=== PATIENT | female | born 1980 | race Caucasian/White ===

== ENCOUNTER → 2018-02-26 14:38 | Outpatient (CLI) | payer SELFPAY ==
[2018-02-26 15:18] LABS: Absolute Lymphocyte Count 1.48 X10^3/ul (0.83-4.51); Absolute Neutrophil Count 5.3 X10^3/uL (2.0-7.7); Basophil# 0.03 X10^3/uL; Basophil% 0.4 % (0-1); Eosinophil# 0.13 X10^3/uL; Eosinophils% 1.7 % (0-5); Hematocrit 38.4 % (37-47); Hemoglobin 12.8 g/dl (12.0-15.0); Lymphocyte # 1.48 X10^3/ul (4.0); Lymphocyte % 19.8 % (19-41); Mean Corp Hgb Conc 33.3 g/gl (32-36); Mean Corpuscular Hgb 30.5 pg (27.0-32.0); Mean Corpuscular Volume 91.6 fL (81-99); Mean Platelet Vol. 9.5 fl (6.2-12.0); Monocyte% 6.7 % (0-10); Neutrophil # 5.32 X10^3/uL (2.7-7.7); Neutrophil % 71.3 % (47-70); Platelet Count 252 K/mm3 (150-450); RBC Distribution Width CV 12.7 % (11.6-14.6); RBC Distribution Width SD 42.6 fl (35.1-43.9); Red Blood Count 4.19 M/mm3 (4.2-5.4); White Blood Count 7.5 K/mm3 (4.4-11.0)
[2018-02-26 15:32] LABS: POSITIVE COUNT NO; POSITIVE DIFFERENTIAL NO; POSITIVE MORPHOLOGY NO
[2018-02-26 15:58] LABS: ALB/GLOB Ratio 0.7 RATIO (0.9-2.4); AST(SGOT) 15 U/L (15-37); Alanine Aminotransfer ALT/SGPT 19 U/L (13-56); Albumin, Serum 3.2 g/dL (3.2-5.0); Alkaline Phosphatase 78 U/L (45-117); Anion Gap 9 (5-15); BUN 9 mg/dL (7-18); BUN/Creat Ratio 9.3 RATIO (10-20); Calcium,Total 10.7 mg/dL (8.5-10.1); Chloride 104 mmol/L (98-107); Creatinine, Serum 0.97 mg/dL (0.55-1.02); EST Glomerular Filtration Rate 68 mL/min (>60); Est Glom Filt Rate - Afr Amer 83 mL/min (>60); Globulin 4.3 g/dL (2.2-4.2); Glucose 110 mg/dL (74-106); Glucose Challenge Gest 1H 50g 110 mg/dL (70-140); Potassium 3.3 mmol/L (3.5-5.1); Protein, Total 7.5 g/dL (6.4-8.2); Sodium Level 136 mmol/L (136-145); T4 Free Direct 0.64 ng/dL (0.76-1.46); Thyroid Stim Hormone (TSH) 2.35 uIU/mL (0.358-3.74)
[2018-02-26 16:34] LABS: HIV - WCH Non-Reactive (Nonreactive); Rubella IgG 14.2 IU/mL
[2018-02-26 20:57] LABS: Chlamydia Trachomatis by PCR Negative (Negative); Neisserai gonorrhoeae by PCR Negative (Negative); Probe Check PASS; Sample Adequacy Control PASS; Specimen Processing Control PASS
[2018-02-28 03:42] LABS: Rapid Plasmin Reagin (RPR) NONREACTIVE (NONREACTIVE)
[2018-02-28 11:30] LABS: HEPATITIS B SURFACE AG Negative (Negative)
== END ==
PROVIDERS: Family Provider Family Medicine; PCP Family Medicine; Visit Provider Obstetrics & Gynecology
DX: O09.529 Supervision of elderly multigravida, unspecified trimester (principal); Z3A.00 Weeks of gestation of pregnancy not specified
CPT/HCPCS: 36415; 80053; 82950; 84439; 84443; 85025; 86592; 86703; 86762; 86850; 86900; 87086; 87088; 87340; 87491; 87591

== ENCOUNTER → 2018-03-27 11:35 | Outpatient (CLI) | payer SELFPAY ==
--- NOTE | 2018-03-27 11:43 | EKG12_ITS ---
Test Reason : ROUTINE Blood Pressure : / mmHG Vent. Rate : 079 BPM Atrial Rate : 079 BPM P-R Int : 134 ms QRS Dur : 076 ms QT Int : 326 ms P-R-T Axes : 034 -12 001 degrees QTc Int : 373 ms Normal sinus rhythm with sinus arrhythmia Moderate voltage criteria for LVH, may be normal variant Borderline ECG Confirmed by ULYSSES SHEFFIELD, SANAM ([id number]), supervising film or videotape editor MELLISSA ARELLANO ([id number]) on 03/31/2018 3:16:51 PM Referred By: Chani Alegre Confirmed By:SANAM ARORA MD
== END ==
PROVIDERS: Family Provider Family Medicine; PCP Family Medicine; Referring Provider Obstetrics & Gynecology; Visit Provider Obstetrics & Gynecology
DX: O10.919 Unspecified pre-existing hypertension complicating pregnancy, unspecified trimester (principal)
CPT/HCPCS: 93005

== ENCOUNTER → 2018-05-14 11:39 | Outpatient (CLI) | payer SELFPAY ==
[2018-04-11 14:26] VITALS: BMI 36.2
--- NOTE | 2018-05-14 11:41 | US_ITS ---
STUDY: SECOND AND THIRD TRIMESTER OBSTETRICAL ULTRASOUND REASON FOR EXAM: Female, 38 years old. anatomy LMP: 12/15/2017 TECHNIQUE: Transabdominal TECHNICAL QUALITY: Adequate. PRIOR ULTRASOUND: None. FINDINGS: There is a single intrauterine fetus. The fetus is in an transverse lie with the head on the maternal left side. There is demonstrated cardiac activity with a heart rate of 143 bpm. There is a normal amniotic fluid volume. The largest amniotic fluid pocket measures 2.5 x 3.5 cm.The placenta is anterior in location and is not low lying. There are Grade 0 placental changes. The cervix measures 4.0 in length. The bilateral adnexal regions are normal. BIOMETRY: BPD: 4.9 cm: 20 weeks, 6 days HC: 18.4 cm: 20 weeks, 6 days AC: 15.6 cm: 20 weeks, 6 days FL: 3.7 cm: 21 weeks, 5 days CI: 78% FL/BPD: 75% FL/AC: 23% HC/AC: 1.18 age by current US: 21 weeks, 1 days. TREMAINE by current US: 09/23/2018. Estimated weight: 400 grams, +/- 58 grams, 28 %. Age by LMP: 21 weeks, 3 days. TREMAINE by LMP: 09/21/2018. ANATOMY: Gender: Female Cranium: Normal lateral ventricles. Normal choroid plexus. Normal cerebellum. Normal cisterna magna. Normal face, nose and lips. Chest: Normal 4-chamber heart, but limited in visualization. Abdomen/Pelvis: Normal diaphragm. Normal stomach. Normal abdominal wall. Normal cord insertion. Normal 3 vessel cord. Normal kidneys. Normal bladder. Spine: Normal cervical spine. Normal thoracic spine. Normal lumbar spine. Normal sacrum. Extremities: Normal bilateral upper extremities. Normal bilateral lower extremities. Limited visualization of the face. US/OB Anatomy Scan IMPRESSION: Single live intrauterine correlating to gestational age of 21 weeks and 1 day. Limited visualization of the four-chamber heart and face. Electronically Signed: Bhanu Pelaez MD at 8:28 EST , Service support ,
== END ==
LOC: US 11:41
PROVIDERS: Family Provider Family Medicine; PCP Family Medicine; Referring Provider Obstetrics & Gynecology; Visit Provider Obstetrics & Gynecology
DX: Z36.89 Encounter for other specified antenatal screening (principal)
CPT/HCPCS: 76805

== ENCOUNTER → 2018-05-26 16:04 | Outpatient (CLI) | payer SELFPAY ==
[2018-05-14 13:05] VITALS: BMI 36.2
--- NOTE | 2018-05-26 16:06 | US_ITS ---
STUDY: SECOND AND THIRD TRIMESTER OBSTETRICAL ULTRASOUND - LIMITED REASON FOR EXAM: Female, 38 years old. Routine survey. LMP: 12/15/2017 PRIOR ULTRASOUND: 05/14/2018 TECHNIQUE: Transabdominal TECHNICAL QUALITY: Adequate. FINDINGS: There is a single intrauterine fetus. The fetus is in a transverse lie with the head on the maternal right side. There is demonstrated cardiac activity with a heart rate of 150 bpm. There is a normal amniotic fluid volume. The amniotic fluid index (NAVDEEP) is 13.4 cm. The placenta is anterior/fundal, not low-lying There are Grade 0 placental changes. The cervix measures 4.5 cm in length. BIOMETRY: BPD: 5.6 cm: 23 weeks, 2 days HC: 21.6 cm: 23 weeks, 4 days AC: 19.3 cm: 24 weeks, 1 days FL: 4.3 cm: 24 weeks, 1 days Age by LMP: 23 weeks, 1 days. TREMAINE by LMP: 09/21/2018. age by prior US: 22 weeks, 6 days. TREMAINE by prior US: 09/23/2018. age by current US: 23 weeks, 6 days. TREMAINE by current US: 09/16/2018. Estimated weight: 646 grams, +/- 94 grams, 81 percentile. Gender: Female 4 chambered heart and facial profile of the fetus visualized and are all sonographically normal US/OB Limited With Biometrics IMPRESSION: Single live intrauterine at 23 weeks 6 days by current ultrasound with TREMAINE of 09/16/2018. Heart rate at 150 bpm. No suspicious sonographic findings, normal growth noted since the previous study. Electronically Signed: Fredy Dickson MD at 18:07 EST , Service support ,
== END ==
PROVIDERS: Family Provider Family Medicine; PCP Family Medicine; Visit Provider Obstetrics & Gynecology
DX: O09.529 Supervision of elderly multigravida, unspecified trimester (principal); Z3A.00 Weeks of gestation of pregnancy not specified
CPT/HCPCS: 76816

== ENCOUNTER → 2018-07-04 12:05 | Outpatient (CLI) | payer SELFPAY ==
[2018-07-04 11:55] VITALS: BMI 36.2
[2018-07-04 13:08] LABS: Absolute Lymphocyte Count 1.47 X10^3/ul (0.83-4.51); Absolute Neutrophil Count 7.9 X10^3/uL (2.0-7.7); Basophil# 0.03 X10^3/uL; Basophil% 0.3 % (0-1); Eosinophil# 0.22 X10^3/uL; Eosinophils% 2.2 % (0-5); Hematocrit 32.1 % (37-47); Hemoglobin 10.6 g/dl (12.0-15.0); Lymphocyte # 1.47 X10^3/ul (4.0); Lymphocyte % 14.6 % (19-41); Mean Corpuscular Hgb 31.2 pg (27.0-32.0); Mean Corpuscular Volume 94.4 fL (81-99); Mean Platelet Vol. 9.3 fl (6.2-12.0); Monocyte# 0.46 X10^3/uL; Monocyte% 4.6 % (0-10); Neutrophil % 78.1 % (47-70); POSITIVE COUNT NO; POSITIVE DIFFERENTIAL NO; POSITIVE MORPHOLOGY NO; Platelet Count 259 K/mm3 (150-450); RBC Distribution Width CV 13.3 % (11.6-14.6); RBC Distribution Width SD 45.7 fl (35.1-43.9); White Blood Count 10.1 K/mm3 (4.4-11.0)
[2018-07-04 13:26] LABS: Glucose Challenge Gest 1H 50g 116 mg/dL (70-140)
== END ==
PROVIDERS: Family Provider Family Medicine; PCP Family Medicine; Referring Provider Obstetrics & Gynecology; Visit Provider Obstetrics & Gynecology
DX: O09.529 Supervision of elderly multigravida, unspecified trimester (principal); Z3A.00 Weeks of gestation of pregnancy not specified
CPT/HCPCS: 36415; 82950; 85025; 86850; 86900

== ENCOUNTER → 2018-07-18 11:27 | Outpatient (CLI) | payer SELFPAY ==
[2018-07-18 11:13] VITALS: BMI 36.2
[2018-07-18 12:44] LABS: Thyroid Stim Hormone (TSH) 3.03 uIU/mL (0.358-3.74)
== END ==
PROVIDERS: Family Provider Family Medicine; PCP Family Medicine; Referring Provider Obstetrics & Gynecology; Visit Provider Obstetrics & Gynecology
DX: O99.283 Endocrine, nutritional and metabolic diseases complicating pregnancy, third trimester (principal); E03.9 Hypothyroidism, unspecified; Z3A.00 Weeks of gestation of pregnancy not specified
CPT/HCPCS: 36415; 84443

== ENCOUNTER → 2018-08-08 11:56 | Outpatient (CLI) | payer SELFPAY ==
[2018-07-18 11:13] VITALS: BMI 36.2
[2018-08-08 11:24] VITALS: BMI 36.2
--- NOTE | 2018-08-08 11:58 | US_ITS ---
STUDY: SECOND AND THIRD TRIMESTER OBSTETRICAL ULTRASOUND - LIMITED REASON FOR EXAM: Female, 38 years old. Follow-up anatomy. LMP: December 15, 2017. PRIOR ULTRASOUND: Comparison is made with prior study dated May 26, 2018. TECHNIQUE: Transabdominal TECHNICAL QUALITY: Adequate. FINDINGS: There is a single intrauterine fetus. The fetus is in a cephalic presentation. There is demonstrated cardiac activity with a heart rate of 138 bpm. There is a normal amniotic fluid volume. The largest amniotic fluid pocket measures 3.4 cm x 0.9 cm. The amniotic fluid index (NAVDEEP) is 10.3 cm. The placenta is fundal and anterior in location. There are Grade 1 placental changes. The cervix measures 4.4 cm in length. BIOMETRY: BPD: 8.11 cm: 32 weeks, 5 days HC: 30.18 cm: 33 weeks, 4 days AC: 30.61 cm: 34 weeks, 4 days FL: 6.63 cm: 34 weeks, 1 days Age by LMP: 33 weeks, 5 days. TREMAINE by LMP: September 21, 2018. age by prior US: 34 weeks, 3 days. TREMAINE by prior US: September 16, 2018. age by current US: 33 weeks, 6 days. TREMAINE by current US: September 20, 2018. Estimated weight: 2357 grams, +/- 344 grams, 56 percentile. Gender: Female US/OB Limited With Biometrics IMPRESSION: Single live intrauterine gestation with mean gestational age of 34 weeks and 3 days. The measurements obtained today following the normal expected range. Electronically Signed: Marko Seymour MD at 10:06 EST , Service support ,
== END ==
PROVIDERS: Family Provider Family Medicine; PCP Family Medicine; Referring Provider Obstetrics & Gynecology; Visit Provider Obstetrics & Gynecology
DX: O99.283 Endocrine, nutritional and metabolic diseases complicating pregnancy, third trimester (principal); E03.9 Hypothyroidism, unspecified; Z3A.00 Weeks of gestation of pregnancy not specified
CPT/HCPCS: 76816

== ENCOUNTER 2018-08-14 17:04 | Outpatient (CLI) | payer SELFPAY ==
[2018-08-14 16:53] VITALS: BMI 36.2
--- NOTE | 2018-08-14 23:06 | OB.TRI.PN_ITS ---
Progress Notes Date of Service: 08/14/18 Progress Note: Patient presented for routine nonstress test scheduled secondary to chronic hypertension heart tones 130s-140s moderate variability reactive after prolonged monitoring no decelerations category 1 tracing [place]: Q. 5-10 minutes mild Assessment and plan 38-year-old with chronic hypertension continue weekly nonstress tests overall reassuring
== END 2018-08-14 18:30 | disposition home or self-care (01) ==
LOC: WPOUT 17:05 → OBT 17:06
PROVIDERS: Family Provider Family Medicine; PCP Family Medicine; Referring Provider Obstetrics & Gynecology; Visit Provider Obstetrics & Gynecology
DX: O16.9 Unspecified maternal hypertension, unspecified trimester (principal); Z3A.00 Weeks of gestation of pregnancy not specified
CPT/HCPCS: 59025

== ENCOUNTER → 2018-08-29 16:44 | Outpatient (CLI) | payer SELFPAY ==
[2018-08-29 13:46] VITALS: BMI 36.2
== END ==
PROVIDERS: Family Provider Family Medicine; PCP Family Medicine; Referring Provider Obstetrics & Gynecology; Visit Provider Obstetrics & Gynecology
DX: Z34.90 Encounter for supervision of normal pregnancy, unspecified, unspecified trimester (principal)
CPT/HCPCS: 87081

== ENCOUNTER 2018-09-08 09:36 | Inpatient (IN) | payer SELFPAY ==
[2018-07-04 11:55] VITALS: BMI 36.2
[2018-09-03 17:04] VITALS: BMI 36.2
[2018-09-08] VITALS (20 sets, daily range): BP systolic 120–148; BP diastolic 60–87; PULSE 67–93; RESP 12–18; TEMP 36–37.1; O2SAT 97–100; BMI 39.4
[2018-09-08] MEDS: Lactated Ringers 1,000 ML 999 ML IV (10:20)
[2018-09-08 10:30] LABS: Absolute Lymphocyte Count 1.57 X10^3/ul (0.83-4.51); Absolute Neutrophil Count 6.7 X10^3/uL (2.0-7.7); Basophil# 0.02 X10^3/uL; Basophil% 0.2 % (0-1); Eosinophil# 0.09 X10^3/uL; Hematocrit 33.2 % (37-47); Lymphocyte # 1.57 X10^3/ul (4.0); Lymphocyte % 17.3 % (19-41); Mean Corp Hgb Conc 33.1 g/gl (32-36); Mean Corpuscular Hgb 32.2 pg (27.0-32.0); Mean Corpuscular Volume 97.1 fL (81-99); Monocyte# 0.68 X10^3/uL; Monocyte% 7.5 % (0-10); Neutrophil # 6.68 X10^3/uL (2.7-7.7); Neutrophil % 73.9 % (47-70); POSITIVE COUNT NO; POSITIVE DIFFERENTIAL NO; POSITIVE MORPHOLOGY NO; Platelet Count 266 K/mm3 (150-450); RBC Distribution Width CV 13.7 % (11.6-14.6); RBC Distribution Width SD 46.5 fl (35.1-43.9); Red Blood Count 3.42 M/mm3 (4.2-5.4); White Blood Count 9.1 K/mm3 (4.4-11.0)
[2018-09-08] MEDS: Lactated Ringers 1,000 ML 150 ML IV (11:45)
[2018-09-08] MEDS: Sodium Citrate/Citric Acid 30 ML UDC PO (12:13)
[2018-09-08] MEDS: Cefazolin 2 GM in 0.9% Normal Saline 100 ML IV (12:27)
[2018-09-08] MEDS: Oxytocin 30 units/NS 500 ml 30 UNITS/500 ML IV.SOLN 167 UNITS IV (12:54)
[2018-09-08] MEDS: Lactated Ringers 1,000 ML 100 ML IV (17:49)
[2018-09-08] MEDS: Ketorolac 30 MG/ML Syringe IV ×2 (17:53→23:04)
[2018-09-08] MEDS: 0.9% Saline Lock 10 ML Syringe IV (23:04)
[2018-09-09] VITALS (17 sets, daily range): BP systolic 121–143; BP diastolic 70–81; PULSE 64–99; RESP 18; TEMP 36.4–37.2; O2SAT 95–100
[2018-09-09] MEDS: Lactated Ringers 1,000 ML 100 ML IV (02:40)
[2018-09-09] MEDS: Ketorolac 30 MG/ML Syringe IV ×3 (05:01→18:41)
[2018-09-09 05:04] LABS: Hematocrit 27.3 % (37-47); Hemoglobin 8.9 g/dl (12.0-15.0); Mean Corp Hgb Conc 32.6 g/gl (32-36); Mean Corpuscular Hgb 32.6 pg (27.0-32.0); Platelet Count 210 K/mm3 (150-450); RBC Distribution Width CV 13.9 % (11.6-14.6); RBC Distribution Width SD 47.8 fl (35.1-43.9); Red Blood Count 2.73 M/mm3 (4.2-5.4); White Blood Count 7.7 K/mm3 (4.4-11.0)
[2018-09-09 05:10] LABS: Scan Indicated on CBC? Y/N NO
--- NOTE | 2018-09-09 05:25 | HP.PCM_ITS ---
- Problem List (1) Rh negative status during Status: Acute Qualifiers: Comment: rhogam at 28 weeks and PRN (2) History of hemorrhage Status: Acute Comment: delayed PPH 2 units transfused (3) Hypothyroidism affecting Status: Acute Qualifiers: Comment: check labs baseline, no meds in a few years, ordered 07/18/18 (4) History of delivery Status: Acute Comment: x3 plans repeat (5) , high-risk, maternal age 35+ multigravida Status: Acute Comment: PRR TREMAINE 09/21/18 PC Gil Olivera Jaxon [place] (6) Status: Acute Qualifiers: Comment: genetic, carrier, and NTD screening declined. Anatomy normal-repeat US due to limited visualization of 4 chamber heart and face. (7) Chronic hypertension during Status: Acute Comment: baseline labs, EKG, and baby aspirin in , growth q 4 weeks and weekly nsts after 32 and weekly afis History and Physical Date of Admission: 09/08/18 OFFICE PROCEDURES Office Procedure Documentation entered by Chani Alegre MD 09/03/18 17:04: OB NST Non-Stress Test Indications for Monitoring: Yes hypertension Heart Rate Baseline: 130 Heart Rate Variability: moderate Movement: Present Heart Rate Accelerations: Present Decelerations: Absent Contractions: Absent Impression: Yes Reactive Non-Stress Test Category 1 Results [id number] Office Urine Glucose Negative Last Edit by Brittanie Jose on 09/03/18 15:23 Office Urine Protein Negative Last Edit by Brittanie Jose on 09/03/18 15:23 Intake Vital Signs 09/03/18 Height 5 ft 3 in 09/03/18 Weight: 224 lb 2 oz 09/03/18 Body Mass Index (BMI) 39.6 09/03/18 Blood Pressure 132/78 H 08/20/18 Body Mass Index (BMI) 36.2 Intake Visit Reasons: 37 WK OB Hydrogen Cell Tender Required: No Is patient in pain?: No Allergies No Known Allergies Allergy (Verified 09/03/18 15:18) Medications vitamin,calcium,dsnbbazu-jdey-spxnd acid tablet 1 tab PO DAILY 02/26/18 [History Confirmed 09/03/18] aspirin 81 mg tablet,delayed release 81 mg PO DAILY 06/19/18 [History Confirmed 09/03/18] Last Menstral Period: 12/15/17 Zika: Zika virus screening: Negative : No PFSH PFSH Medical History Gestational hypertension (Acute) Thyroid disorder (Acute) Hypertension (Chronic) Surgical History History of delivery (Acute) Family History Father Cancer Mother Diabetes Social History Smoking Status: Never smoker alcohol intake: never substance use type: does not use caffeine: Yes what type of physical activity do you participate in: walking seatbelt use: always do you feel safe at home: Yes additional social history: [place]- Self 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 Date Name GA/Weeks Outcome Route Bth Weight Infant Gen Labor Lgth Anesthesia Del Locatn Provider FOB Unknown 2007 Fabiola 38 live - full term 6lbs 4oz Female Dr. Armendariz Unknown 2010 Gil 40 live - full term Male Dr. Tsang Unknown 2017 Mynor 38 live - full term 5lbs 4oz Dr. Beltre Delivery Date: On 02/26/18 @ 14:00 Chani Alegre preeclampsia Delivery Date: No notes to display Delivery Date: On 02/26/18 @ 14:00 Chani Alegre breech HPI 37 WK OB: Details: ERYN ARELLANO is a 38 year old who presents for routine OB visit. OB Visit TREMAINE Calculator Estimated Delivery Date 09/21/18 Based on LMP (certain) 12/15/17 Current WG 37w 3d Number 1 Expected Delivery Route/Plan RLTCS BTL Specific Issue/Plans flu vaccine: declined tdap vaccine: given rhogam: [] LARC form signed: [] labor support person: Floyd pain management: cut cord/dad catch: yes : yes PP control planned: [] special requests: [] Initial Weight: 205 lb Date EGA Weight BP Urine Prot Glucose FHR FuHt Pres Mov CTX Dilation Effaced St Visit Note 03/12/18 12w 3d 204 lb 6 oz (-10 oz) 115/79 Negative Negative 160 Some nausea but manageable. No VB, LOF. Home BPs all 110-120/70s. Denies other concerns 04/11/18 16w 5d 204 lb 7 oz (-9 oz) 118/64 Negative Negative 160 home bps normal no vb lof cramping declines genetic and ntd screening 05/14/18 21w 3d 209 lb 4 oz (+4 lb 4 oz) 118/80 Negative Negative 146 Active Doing well. Less activity but anterior placenta on US today. Home BPs WNL. NO VB, LOF 06/19/18 26w 4d 213 lb 8 oz (+8 lb 8 oz) 122/76 Negative Negative 140 no vb lof good fm no regular ctx 07/04/18 28w 5d 217 lb (+12 lb) Negative Negative 140 Cephalic Active absent no vb lof good fm no regular ctx cbc gct rhogam tdap 07/18/18 30w 5d 217 lb (+12 lb) 132/86 Negative Negative 140 Cephalic Active absent no vb lof 08/01/18 32w 5d 222 lb (+17 lb) 132/78 Negative Negative 130 Cephalic Active absent no vb lof good fm nore gular ctx 08/14/18 34w 4d 223 lb (+18 lb) 144/72 Negative Negative absent to l and d for NST, no CALDERON BV doing well 08/20/18 35w 3d 222 lb 6 oz (+17 lb 6 oz) 140 Cephalic Active absent no vb lof good fm n oregualr ctx 08/29/18 36w 5d 224 lb (+19 lb) 122/80 130 Cephalic Active absent no vb lof good fm no regular ctx 09/03/18 37w 3d 224 lb 2 oz (+19 lb 2 oz) 132/78 Negative Negative 130 Cephalic Active absent no vb lof good fm no regular ctx Visit Notes Visit Date: 09/03/18 ??no vb lof good fm no regular ctx ??Chani Alegre MD on 09/03/18 Visit Date: 08/29/18 ??no vb lof good fm no regular ctx ??Chani Alegre MD on 08/29/18 Visit Date: 08/20/18 ??no vb lof good fm n oregualr ctx ??Chani Alegre MD on 08/20/18 Visit Date: 08/14/18 ??to l and d for NST, no CALDERON BV doing well ??Chani Alegre MD on 08/14/18 Visit Date: 08/01/18 ??no vb lof good fm nore gular ctx ??Chani Alegre MD on 08/01/18 Visit Date: 07/18/18 ??no vb lof ??Chani Alegre MD on 07/18/18 Visit Date: 07/04/18 ??no vb lof good fm no regular ctx cbc gct rhogam tdap ??Chani Alegre MD on 07/04/18 Visit Date: 06/19/18 ??no vb lof good fm no regular ctx ??Chani Alegre MD on 06/19/18 Visit Date: 05/14/18 ??Doing well. Less activity but anterior placenta on US today. Home BPs WNL. NO VB, LOF ??LACEY Wilkerson on 05/14/18 Visit Date: 04/11/18 ??home bps normal no vb lof cramping declines genetic and ntd screening ??Chani Alegre MD on 04/14/18 Visit Date: 03/12/18 ??Some nausea but manageable. No VB, LOF. Home BPs all 110-120/70s. Denies other concerns ??LACEY Wilkerson on 03/12/18 ACOG First Trimester First Trimester: Desire for , Alcohol, Tobacco Cessation, Illicit/Recreational Drug/Substance Use, Intimate Partner Violence, Barriers to care, Unstable Housing, Communication Barriers, Environmental/Work Hazards, Anticipated Course of Care, Toxoplasmosis Precations, Use of Any medications, Sexual activity, Exercise, Dental Care, Sauna/Hot tub use, Seat Belt use, Childbirth classes/Hospital facilities, , Travel, Indications for US and Screening for Aneuploidy Diagnostics Diagnostics Labs Blood Type A NEGATIVE 07/04/18 Antibody Screen NEGATIVE 07/04/18 Hct 32.1 % (37-47) L 07/04/18 Hgb 10.6 g/dl (12.0-15.0) L 07/04/18 Obstetrics Ultrasound 08/08/18 Glucose 1 Hr 50 gm 116 mg/dL (70-140) 07/04/18 Details: HIV: Urine Culture: Sequential Screen: NIPT Screen: Results [id number] Office Urine Glucose Negative Last Edit by Brittanie Jose on 09/03/18 15:23 Office Urine Protein Negative Last Edit by Brittanie Jose on 09/03/18 15:23 Assessment & Plan Problems 1. , high-risk, maternal age 35+ multigravida O09.529 PRR TREMAINE 09/21/18 PC Gil Olivera Jaxon [place] 2. Chronic hypertension during O10.919 baseline labs, EKG, and baby aspirin in , growth q 4 weeks and weekly nsts after 32 and weekly afis 3. Rh negative status during in third trimester O09.893 rhogam at 28 weeks and PRN 4. History of delivery Z98.891 x3 plans repeat 5. History of hemorrhage Z86.2 delayed PPH 2 units transfused 6. Hypothyroidism affecting in third trimester O99.283 check labs baseline, no meds in a few years, ordered 07/18/18 7. 37 weeks gestation of Z3A.37 genetic, carrier, and NTD screening declined. Anatomy normal-repeat US due to limited visualization of 4 chamber heart and face. Plan movement and term labor precautions reviewed. ACOG trimester education reviewed and updated. see problem list details for updated plan management information and see below for orders placed at this visit. GA appropriate handout given. plan RLTCS Orders Orders: OB NST Today O10.919 POC Urinalysis 2 Dip (Clinic) Today Coding Level of Care Code OB Routine Diagnoses , high-risk, maternal age 35+ multigravida O09.529 Chronic hypertension during O10.919 Rh negative status during in third trimester O09.893 ??Trimester: third trimester History of delivery Z98.891 History of hemorrhage Z86.2 Hypothyroidism affecting in third trimester O99.283 ??Trimester: third trimester 37 weeks gestation of Z3A.37 ??Weeks of gestation: 37 weeks
--- NOTE | 2018-09-09 05:25 | PCM.OPRPT ---
Problem List (1) Rh negative status during Status: Acute Qualifiers: Comment: rhogam at 28 weeks and PRN (2) History of hemorrhage Status: Acute Comment: delayed PPH 2 units transfused (3) Hypothyroidism affecting Status: Acute Qualifiers: Comment: check labs baseline, no meds in a few years, ordered 07/18/18 (4) History of delivery Status: Acute Comment: x3 plans repeat (5) , high-risk, maternal age 35+ multigravida Status: Acute Comment: PRR TREMAINE 09/21/18 PC Gil Olivera Jaxon [place] (6) Status: Acute Qualifiers: Comment: genetic, carrier, and NTD screening declined. Anatomy normal-repeat US due to limited visualization of 4 chamber heart and face. (7) Chronic hypertension during Status: Acute Comment: baseline labs, EKG, and baby aspirin in , growth q 4 weeks and weekly nsts after 32 and weekly afis Report of Operation Date of Procedure: 09/08/18 Pre-Operative Diagnosis: previous Post-Operative Diagnosis: same Surgery/Procedure Performed:: ltcs Description of Surgical Findings:: Thickened anterior abdominal wall with scar tissue in the subcutaneous tissue and fascia, thinner but healthy lower uterine segment clerical aide teacher: Jovany Hodges Type of Anesthesia:: Spinal Special Medications: none Specimen's removed: Drains: chapman Estimated Blood Loss (mL): 700 Fluids Replaced: crystalloid Description of Procedure: The patient is a 38-year-old presented for repeat . Spinal anesthesia was placed without difficulty. Chapman catheter was placed. The patient was placed in the dorsal supine position with leftward tilt. Patient was prepped and draped in the normal sterile fashion. Pfannenstiel skin incision was made with the scalpel and carried through to the underlying layer of fascia with the scalpel. Fascia was nicked in the midline and the incision extended laterally. The rectus bellies were dissected off superiorly and inferiorly with out complication both sharply and bluntly. The peritoneum was entered digitally. The incision was stretched and a low transverse uterine incision was made with the scalpel. The infant's head was delivered atraumatically followed by the anterior and posterior shoulders without complication the rest of the delivered. The cord was clamped and cut and the infant was handed off to awaiting nurse. The placenta was delivered spontaneously immediately following and was noted to be intact and have a three-vessel cord. The uterus was exteriorized cleared of all clots and debris, and the incision was closed in a double layer closure using #1 Monocryl. The uterus was returned to the maternal abdomen and gutters were cleared of all clots and debris. The ovaries and fallopian tubes were noted to be within normal limits. The peritoneum was closed with 3-0 Monocryl in a running fashion. Fascia was closed with 0 PDS in a running fashion. Subcutaneous tissue was copiously irrigated and the skin was closed with 3-0 Monocryl in a subcuticular fashion. Steri-Strips and Mepilex dressing were applied without complication. Patient was taken to recovery in stable condition. Grafts/Implants Used: none - Complications none - Admit VTE Documentation VTE Present on Admission: No VTE Mechan Device Prophylaxis: SCD's
--- NOTE | 2018-09-09 07:44 | PCM.PN.OB ---
Subjective: doing well no complaints pain controlled no CP SOB N V; has been up to chair; tolerating po; lochia moderate, going well - Physical Exam General: Alert, Oriented x3 Abdomen: Soft, Non Tender, - - Minimal tenderness with exam. FF below U. Dressing dry and intact Vital Signs Temp Pulse Resp BP Pulse Ox 98.5 F 94 18 121/70 H 98 09/09/18 04:30 09/09/18 07:20 09/09/18 07:20 09/09/18 04:30 09/09/18 07:20 Oxygen Delivery Method Room Air Weight: 222 lb 14.197 oz Body Mass Index (BMI) 39.4 Intake and Output for Last 24 Hours 09/07/18 09/08/18 09/09/18 23:59 23:59 23:59 Intake Total 3762 / 3762 935 / 935 Output Total 1050 / 1050 850 / 850 Balance 2712 / 2712 85 / 85 Laboratory Tests Past 24 Hrs 09/08/18 09/08/18 09/09/18 10:20 10:20 04:36 WBC 9.1 7.7 RBC 3.42 L 2.73 L Hgb 11.0 L 8.9 L Hct 33.2 L 27.3 L MCV 97.1 100.0 H MCH 32.2 H 32.6 H MCHC 33.1 32.6 RDW 13.7 13.9 RDW Differential 46.5 H 47.8 H Plt Count 266 210 MPV 9.0 9.0 Immature Gran % (Auto) 0.100 Neut % (Auto) 73.9 H Lymph % (Auto) 17.3 L [place] % (Auto) 7.5 Eos % (Auto) 1.0 Baso % (Auto) 0.2 Absolute Neuts (auto) 6.7 Absolute Lymphs (auto) 1.57 Total Counted Not Reportable Blood Type A NEGATIVE Antibody Screen NEGATIVE Medical Necessity - Tobacco Use Smoking Status: Never smoker Assessment/Plan All Active Problems (Last Reviewed 09/03/18 @ 15:17 by Brittanie Jose) Rh negative status during (Acute) History of hemorrhage (Acute) Hypothyroidism affecting (Acute) History of delivery (Acute) , high-risk, maternal age 35+ multigravida (Acute) (Acute) Chronic hypertension during (Acute) s/p LTCS PPD # 1 1. routine post care 2. breast feeding- support given 3. rh negative 4. rubella immune 5. Blood pressure WNL
[2018-09-09] MEDS: Enoxaparin 40 MG/0.4 ML Syringe SC (11:11)
--- NOTE | 2018-09-09 14:05 | NURSING ---
agree with student's assessments.
[2018-09-09] MEDS: Acetaminophen 500 MG Tablet 1000 MG PO (15:27)
[2018-09-09] MEDS: 0.9% Saline Lock 10 ML Syringe IV ×2 (18:41→18:45)
[2018-09-10] MEDS: 0.9% Saline Lock 10 ML Syringe IV ×2 (00:11→06:23)
[2018-09-10] MEDS: Ketorolac 30 MG/ML Syringe IV ×2 (00:11→06:23)
[2018-09-10 02:20] VITALS: BP 133/77; PULSE 76; RESP 18; TEMP 36.9
[2018-09-10 08:00] VITALS: BP 139/80; PULSE 72; RESP 18; TEMP 36.7
--- NOTE | 2018-09-10 08:10 | PCM.PN.OB ---
Subjective: doing well no complaints pain controlled no CP SOB N V ambulating well tolerating po lochia moderate, going well - Physical Exam General: Alert, Oriented x3 Abdomen: Soft, Non-Distended, - - Minimal tenderness, dressing dry and intact. FF below U Vital Signs Temp Pulse Resp BP Pulse Ox 98.5 F 76 18 133/77 H 96 09/10/18 02:20 09/10/18 02:20 09/10/18 02:20 09/10/18 02:20 09/09/18 20:30 Oxygen Delivery Method Room Air Weight: 222 lb 14.197 oz Body Mass Index (BMI) 39.4 Intake and Output for Last 24 Hours 09/08/18 09/09/18 09/10/18 23:59 23:59 23:59 Intake Total 3762 / 3762 935 / 935 Output Total 1050 / 1050 2550 / 2550 Balance 2712 / 2712 -1615 / -1615 Medical Necessity - Tobacco Use Smoking Status: Never smoker Assessment/Plan All Active Problems (Last Reviewed 09/03/18 @ 15:17 by Brittanie Jose) Rh negative status during (Acute) History of hemorrhage (Acute) Hypothyroidism affecting (Acute) History of delivery (Acute) , high-risk, maternal age 35+ multigravida (Acute) (Acute) Chronic hypertension during (Acute) s/p LTCS PPD # 2 1. routine post care 2. breast feeding- support given 3. rh positive 4. rubella immune 5. BP WNL 6. plan home today
--- NOTE | 2018-09-10 08:11 | PCM.DCCSEC ---
Additional Instructions: If you experience any of the following, contact your healthcare provider. Bleeding that soaks a pad every hour for 2 hours Fever 100.4 or higher Unrelieved incision or abdominal pain Swelling, redness, discharge or bleeding from your incision or episiotomy site Your incision begins to separate Problems urinating (including inability to urinate or burning while urinating). Visual changes Severe headache Flu-like symptoms Pain or redness in one of both of your breasts Pain, warmth, tenderness or swelling in your legs, especially the calf area Frequent nausea and vomiting Symptoms of depression or anxiety If you experience any of the following, call 911 or go to the nearest Emergency Room. Chest pain Problems breathing Seizure activity Partial or complete paralysis of a body part, slurred speech, weakness or drooping of the face, or a sudden inability to walk or hold your balance Allergies/Adverse Reactions: Allergies No Known Allergies Allergy (Verified 09/03/18 15:18) Medications to take at Discharge vitamin,calcium,bowljsbi-zmri-ahrsv acid tablet 1 tab PO DAILY 02/26/18 aspirin 81 mg tablet,delayed release 81 mg PO DAILY 06/19/18 Naproxen [Naprosyn] 500 mg PO BID PRN PRN #60 tablet 09/10/18 Naproxen [Naprosyn] 500 mg PO BID PRN PRN #60 tablet 09/10/18 Oxycodone HCl/Acetaminophen [Percocet 5/325] 1 - 2 tablet PO Q4H PRN PRN 7 Days #28 tablet 09/10/18 Oxycodone HCl/Acetaminophen [Percocet 5/325] 1 - 2 tablet PO Q4H PRN PRN 7 Days #28 tablet 09/10/18 The following prescriptions were given: Oxycodone HCl/Acetaminophen [Percocet 5/325] 1 - 2 tablet PO Q4H PRN PRN 7 Days #28 tablet PRN Reason: Pain Oxycodone HCl/Acetaminophen [Percocet 5/325] 1 - 2 tablet PO Q4H PRN PRN 7 Days #28 tablet PRN Reason: Pain Naproxen [Naprosyn] 500 mg PO BID PRN PRN #60 tablet PRN Reason: Pain Naproxen [Naprosyn] 500 mg PO BID PRN PRN #60 tablet PRN Reason: Pain Follow-Up: Call to make an appointment with your doctor for an incision check in 1-2 weeks. You will also need a 6 week post- follow up appointment. Test results from this visit will be discussed in further detail at your follow-up appointment, if applicable. Primary Care Physician: Toni Gamez [Primary Care Provider] -
--- NOTE | 2018-09-10 08:12 | DCINST_ITS ---
Additional Instructions: If you experience any of the following, contact your healthcare provider. * Bleeding that soaks a pad every hour for 2 hours * Fever 100.4 or higher * Unrelieved incision or abdominal pain * Swelling, redness, discharge or bleeding from your incision or episiotomy site * Your incision begins to separate * Problems urinating (including inability to urinate or burning while urinating). * Visual changes * Severe headache * Flu-like symptoms * Pain or redness in one of both of your breasts * Pain, warmth, tenderness or swelling in your legs, especially the calf area * Frequent nausea and vomiting * Symptoms of depression or anxiety If you experience any of the following, call 911 or go to the nearest Emergency Room. * Chest pain * Problems breathing * Seizure activity * Partial or complete paralysis of a body part, slurred speech, weakness or drooping of the face, or a sudden inability to walk or hold your balance Allergies/Adverse Reactions: Allergies No Known Allergies Allergy (Verified 09/03/18 15:18) Medications to take at Discharge vitamin,calcium,zkoqphzq-gzuz-bpqop acid tablet 1 tab PO DAILY 02/26/18 aspirin 81 mg tablet,delayed release 81 mg PO DAILY 06/19/18 Naproxen [Naprosyn] 500 mg PO BID PRN PRN #60 tablet 09/10/18 Naproxen [Naprosyn] 500 mg PO BID PRN PRN #60 tablet 09/10/18 Oxycodone HCl/Acetaminophen [Percocet 5/325] 1 - 2 tablet PO Q4H PRN PRN 7 Days #28 tablet 09/10/18 Oxycodone HCl/Acetaminophen [Percocet 5/325] 1 - 2 tablet PO Q4H PRN PRN 7 Days #28 tablet 09/10/18 The following prescriptions were given: Oxycodone HCl/Acetaminophen [Percocet 5/325] 1 - 2 tablet PO Q4H PRN PRN 7 Days #28 tablet PRN Reason: Pain Oxycodone HCl/Acetaminophen [Percocet 5/325] 1 - 2 tablet PO Q4H PRN PRN 7 Days #28 tablet PRN Reason: Pain Naproxen [Naprosyn] 500 mg PO BID PRN PRN #60 tablet PRN Reason: Pain Naproxen [Naprosyn] 500 mg PO BID PRN PRN #60 tablet PRN Reason: Pain Follow-Up: Call to make an appointment with your doctor for an incision check in 1-2 weeks. You will also need a 6 week post- follow up appointment. Test results from this visit will be discussed in further detail at your follow- up appointment, if applicable. Primary Care Physician: Toni Gamez [Primary Care Provider] -
[2018-09-10] MEDS: Naproxen 250 MG Tablet PO (10:59)
[2018-09-10] MEDS: Acetaminophen 500 MG Tablet 1000 MG PO (11:00)
--- NOTE | 2018-09-17 19:47 | NURSING ---
follow up call complete, denies needs or concerns, was satisfied with her care. offered services declines at this time
== END 2018-09-10 11:15 | disposition home or self-care (01) | DRG 787 ==
PROVIDERS: Admitting Provider Obstetrics & Gynecology; Family Provider Family Medicine; PCP Family Medicine; Referring Provider Obstetrics & Gynecology; Visit Provider Obstetrics & Gynecology
PROC: 10D00Z1 Extraction of Products of Conception, Low, Open Approach (ICD-10-PCS; CPT 59514; principal; 2018-09-08 11:45)
DX: O34.211 Maternal care for low transverse scar from previous cesarean delivery (principal); O36.0130 Maternal care for anti-D [Rh] antibodies, third trimester, not applicable or unspecified; O13.3 Gestational [pregnancy-induced] hypertension without significant proteinuria, third trimester; O99.283 Endocrine, nutritional and metabolic diseases complicating pregnancy, third trimester; E03.9 Hypothyroidism, unspecified; Z3A.37 37 weeks gestation of pregnancy; Z37.0 Single live birth; Z87.59 Personal history of other complications of pregnancy, childbirth and the puerperium
CPT/HCPCS: 85025; 85027; 86850; 86900; 99218; J7120; A4216; G0378; J2405

== ENCOUNTER → 2018-10-28 12:12 | Outpatient (CLI) | payer SELFPAY ==
[2018-10-28 11:54] VITALS: BMI 39.4
[2018-10-28 14:24] LABS: Thyroid Stim Hormone (TSH) 3.94 uIU/mL (0.358-3.74)
== END ==
PROVIDERS: Family Provider Family Medicine; PCP Family Medicine; Referring Provider Obstetrics & Gynecology; Visit Provider Obstetrics & Gynecology
DX: O99.280 Endocrine, nutritional and metabolic diseases complicating pregnancy, unspecified trimester (principal); E03.9 Hypothyroidism, unspecified; Z3A.00 Weeks of gestation of pregnancy not specified
CPT/HCPCS: 36415; 84439; 84443

== ENCOUNTER → 2022-04-27 | Outpatient (CLI) | payer SELFPAY ==
--- NOTE | 2022-04-27 12:57 | ECHOD_ITS ---
Reason For Study: SOB Procedure This was a 2D Doppler, Color Flow transthoracic echocardiogram. Exam performed in department. Left Ventricle Normal LV size. Left ventricular systolic function is normal. The estimated ejection fraction is 65 %. No regional wall motion abnormalities noted. Right Ventricle Normal RV size. Normal systolic function. Atria Normal left atrium. Normal right atrium. Mitral Valve Normal mitral valve. Tricuspid Valve Normal tricuspid valve. Mild tricuspid valve insufficiency. Pulmonary artery systolic pressure is 25 mmHg. Aortic Valve Normal aortic valve. Pulmonic Valve Normal pulmonic valve. Great Vessels Normal aortic root. The pulmonary artery is normal size. Normal inferior vena cava. Pericardium/Pleural No pericardial effusion. MMode/2D Measurements & Calculations LVIDd: 4.6 cm IVSd: 0.87 cm Ao root diam: 2.8 cm LVIDs: 2.5 cm LVPWd: 0.96 cm LA dimension: 3.5 cm RVDd: 3.1 cm FS: 45.9 % LAV(MOD-bp): 32.5 ml LA A4 area: 13.4 cm2 RA A4 area: 11.5 cm2 LAV(MOD-bp) Indexed: 16.2 ml/m2 LAV(MOD-sp2): 30.4 ml LAV(MOD-sp4): 31.8 ml Time Measurements MV dec time: 0.21 sec Doppler Measurements & Calculations MV E max joel: 94.2 cm/sec Lat Peak E' Joel: 15.6 cm/sec Med Peak E' Joel: 8.1 cm/sec MV A max joel: 69.9 cm/sec E/E' lat: 6.0 E/E' med: 11.6 MV E/A: 1.3 MV V2 max: 102.5 cm/sec MV P1/2t max joel: 104.1 cm/sec Ao V2 max: 140.1 cm/sec MV max P.2 mmHg MV P1/2t: 69.3 msec Ao max P.9 mmHg MV V2 mean: 50.9 cm/sec MV dec slope: 440.0 cm/sec2 Ao V2 mean: 94.6 cm/sec MV mean P.3 mmHg MVA(P1/2t): 3.2 cm2 Ao mean P.2 mmHg MV V2 VTI: 27.8 cm Ao V2 VTI: 28.4 cm LV V1 max: 133.1 cm/sec PA V2 max: 124.1 cm/sec TR max joel: 235.6 cm/sec LV V1 max P.1 mmHg TR max P.2 mmHg LV V1 mean P.7 mmHg LV V1 mean: 89.3 cm/sec LV V1 VTI: 26.7 cm ECHO/Echo Complete Interpretation Summary Normal LV size. Left ventricular systolic function is normal. The estimated ejection fraction is 65 %. Pulmonary artery systolic pressure is 25 mmHg. Ordering Physician: Aviva Elizabeth Performed By: Snaju Roberts RCS
== END | disposition home or self-care (01) ==
PROVIDERS: PCP Physician Assistant; Visit Provider Physician Assistant
DX: R06.02 Shortness of breath (principal)
CPT/HCPCS: 93306

== ENCOUNTER → 2022-05-08 | Outpatient (CLI) | payer SELFPAY ==
--- NOTE | 2022-05-08 14:29 | US_ITS ---
STUDY: THYROID ULTRASOUND REASON FOR EXAM: Female, 42 years old. MULTIPLE THYROID NODULES TECHNIQUE: Ultrasound evaluation of the thyroid was performed with real-time and static luo-scale imaging. COMPARISON: None. FINDINGS: RIGHT LOBE: The right lobe of the thyroid gland measures 4.9 x 1.6 x 1.4 cm. There is a the right thyroid appears fairly homogeneous although mildly lobulated. Within the inferior aspect of the right thyroid there is a hypoechoic mass measuring 2.3 x 1.5 x 0.9 cm with appearing to have solid and cystic components. Within the mid right thyroid there is a well-circumscribed hypoechoic mass with minimal peripheral vascularity measuring 0.7 x 0.8 x 0.5 cm.. There are no demonstrated solid, cystic or complex lesions. LEFT LOBE: The left lobe of the thyroid gland measures 4.2 x 1.2 x 1.3 cm. There is a homogeneous echotexture. The well-circumscribed inhomogeneous nodule left thyroid with cystic and solid components with minimal internal vascularity measuring 1.3 x 1.1 x 0.9 cm. ISTHMUS: The isthmus measures 2.5 mm . . The regional lymph nodes are normal. US/Thyroid IMPRESSION: Dominant inferior low attenuating mass right thyroid which may represent exophytic nodule, measuring 2.2 x 1.5 x 0.9 cm cystic solid partially vascular components. Recommend correlation with prior history of reported multiple thyroid nodules. A prior study would be very helpful to establish stability otherwise could consider biopsy of the dominant mass in the inferior aspect of the right thyroid. Electronically Signed: Isabelle Guidry MD at 1:01 EST ,
== END | disposition home or self-care (01) ==
PROVIDERS: PCP Physician Assistant; Referring Provider Physician Assistant; Visit Provider Physician Assistant
DX: E04.2 Nontoxic multinodular goiter (principal)
CPT/HCPCS: 76536

== ENCOUNTER → 2022-05-28 | Outpatient (CLI) | payer SELFPAY ==
--- NOTE | 2022-05-28 15:52 | STRESSREP ---
Stress Test Report Exercise myocardial perfusion stress test. 42-year-old lady with a history of chest pain Stress protocol: Resting EKG demonstrates normal sinus rhythm with a rate of 75 bpm resting blood pressure is 122/88 mmHg. The patient exercised according to the regular Mark protocol for a total duration of 6 minutes attaining a maximum heart rate of 173 bpm which was 97% of max impacted heart rate the maximum workload was 7 metabolic equivalents. At rest there were no ST or T wave changes noted suggest ischemia and at peak exercise upsloping ST changes only were noted we did not meet the criteria for ischemia. No clinical angina was noted the test was terminated due to the target heart rate being achieved. The peak blood pressure was 192/70 mmHg. Rate-pressure product was 33,200. Myocardial perfusion protocol. 14.3 mCi of technetium 99m sestamibi was injected at rest. The patient exercised according to regular Mark protocol for total duration of 6 minutes and at peak exercise 44.6 mCi of technetium 99m sestamibi was injected stress images were obtained stress and rest images were reconstructed in comparing the short axis vertical long and horizontal long axis. Gated images were also obtained. Perfusion SPECT analysis: Review of the stress images demonstrate normal uptake of tracer noted in all areas of the myocardium. The resting images similarly demonstrate normal uptake of tracer noted in all areas of the myocardium. No areas of reversibility are noted to suggest ischemia no previous infarct was noted. Gated SPECT analysis: The gated ejection fraction is 81. Conclusion: Normal exercise myocardial perfusion stress test at a moderate workload. Preserved ejection fraction.
== END | disposition home or self-care (01) ==
PROVIDERS: PCP Physician Assistant; Referring Provider Physician Assistant; Visit Provider Physician Assistant
DX: R06.02 Shortness of breath (principal)
CPT/HCPCS: 78452; 93017; A9500; A4216

== ENCOUNTER → 2022-06-06 | Outpatient (CLI) | payer SELFPAY ==
--- NOTE | 2022-06-06 08:30 | FLU_PTH ---
PATIENT: ERYN ARELLANO LOC: [facility] U#:[id number] AGE/SX: 42/F ROOM: RE06/06/[address]: Dr. Aren Nassar MD : 1980 BED: DIS: 06/06/2022 SPEC #: [id number] RECD: 06/06/22 11:35 STATUS: TJ RERambo #: [id number] [place]: 06/06/22 08:[address]: Aren Nassar DEPT: CYTOLOGY RECD BY: Vivian Cornell ENTERED: 06/06/22 13:35 SP TYPE: Fluid OTHR DR: LUCIE Gonzalez Tissues: A - Thyroid gland, NOS B - Thyroid gland, NOS C - Thyroid gland, NOS Procedures: Special Stain Group II Surgery Specimen Level IV Cytospin Fluid Cytology Other HEADER OPERATION: Right inferior thyroid nodule fine needle aspiration PRE-OP DIAGNOSIS: Multiple thyroid nodules TISSUE SUBMITTED: A - Right inferior thyroid nodule fluid FNA, B - Right inferior thyroid nodule FNA, C - Right inferior thyroid nodule fluid FNA DIAGNOSIS CYTOLOGY A. Right inferior thyroid nodule fluid, fine needle aspiration (cytospin and cell block): Negative for malignant cells. See comment. B. Right inferior thyroid nodule, fine needle aspiration (smears): Consistent with benign follicular/colloid nodule ([place] Category II). Adequate for evaluation. See comment. C. Right inferior thyroid nodule fluid, fine needle aspiration (cytospin and cell block): Negative for malignant cells. See comment. SJ:rg 06/07/2022 COMMENT A. The specimen is paucicellular and consists of rare macrophages. C. The specimen consists of a few clusters of benign follicular cells and macrophages. Correlation with clinical, radiologic findings and appropriate follow up are necessary. CYTOLOGY STUDY Slides are reviewed. CYTOLOGY GROSS A - Received is 30 ml of light pink fluid labeled with the patient's name and and designated per the requisition as right inferior thyroid nodule. Submitted for cytology preparation including cell block. B - Received are four smears labeled with the patient's name and designated per the requisition as right inferior thyroid nodule. Submitted for staining. C - Received is 3 ml of red cloudy fluid labeled with the patient's name and and designated per the requisition as right inferior thyroid nodule. Submitted for cytology preparation including cell block. / neli 06/06/2022 TC:5 CPT: 19081 x3, 53939 x2
--- NOTE | 2022-06-06 08:30 | FLU_PTH ---
PATIENT: ERYN ARELLANO LOC: [facility] U#:[id number] AGE/SX: 42/F ROOM: RE06/06/[address]: Dr. Aren Nassar MD : 1980 BED: DIS: 06/06/2022 SPEC #: [id number] RECD: 06/06/22 11:35 STATUS: TJ RERambo #: [id number] [place]: 06/06/22 08:[address]: Aren Nassar DEPT: CYTOLOGY RECD BY: Vivian Cornell ENTERED: 06/06/22 13:35 SP TYPE: Fluid OTHR DR: LUCIE Gonzalez Tissues: A - Thyroid gland, NOS B - Thyroid gland, NOS C - Thyroid gland, NOS Procedures: Special Stain Group II Surgery Specimen Level IV Cytospin Fluid Cytology Other HEADER OPERATION: Right inferior thyroid nodule fine needle aspiration PRE-OP DIAGNOSIS: Multiple thyroid nodules TISSUE SUBMITTED: A - Right inferior thyroid nodule fluid FNA, B - Right inferior thyroid nodule FNA, C - Right inferior thyroid nodule fluid FNA DIAGNOSIS CYTOLOGY A. Right inferior thyroid nodule fluid, fine needle aspiration (cytospin and cell block): Negative for malignant cells. See comment. B. Right inferior thyroid nodule, fine needle aspiration (smears): Clusters of benign cells noted. See comment. C. Right inferior thyroid nodule fluid, fine needle aspiration (cytospin and cell block): Negative for malignant cells. See comment. SJ:neli 06/07/2022 SJ:neli 06/11/2022 COMMENT A. The specimen is paucicellular and consists of rare macrophages. B. Significant amount of colloid is not seen. As per clinical suspicion, these cells may represent parathyroid origin. C. The specimen is paucicellular and consists of rare clusters of benign cells and macrophages Correlation with clinical, radiologic findings and appropriate follow up are necessary. This case is discussed with Dr. Nassar on 06/11/2022 Case has been reviewed in consultation with Dr. Arzate who concurs with the above diagnosis. IDC:AM CYTOLOGY STUDY Slides are reviewed. CYTOLOGY GROSS A - Received is 30 ml of light pink fluid labeled with the patient's name and and designated per the requisition as right inferior thyroid nodule. Submitted for cytology preparation including cell block. B - Received are four smears labeled with the patient's name and designated per the requisition as right inferior thyroid nodule. Submitted for staining. C - Received is 3 ml of red cloudy fluid labeled with the patient's name and and designated per the requisition as right inferior thyroid nodule. Submitted for cytology preparation including cell block. / neli 06/06/2022 TC:5 CPT: 90549 x3, 98058 x2
== END | disposition home or self-care (01) ==
LOC: LABSPEC 11:48
PROVIDERS: PCP Physician Assistant; Referring Provider Surgery; Visit Provider Surgery
DX: E04.2 Nontoxic multinodular goiter (principal)
CPT/HCPCS: 83970; 88108; 88161; 88305; 88313

== ENCOUNTER → 2022-07-03 | Outpatient (CLI) | payer SELFPAY ==
--- NOTE | 2022-07-03 09:47 | NM_ITS ---
CLINICAL: 42-year-old female with history of clinical hyperparathyroidism. 99m Tc SESTAMIBI DUAL PHASE PLANAR and SPECT-CT PARATHYROID SCINTIGRAPHY COMPARISON: None available FINDINGS: Following the intravenous administration of 25.1 mCi of 99m Tc sestamibi, planar image acquisitions of the anterior neck at 15 minutes and 3.0 hours post radiopharmaceutical provision and SPECT reconstructions obtained at 3.0 hours reveal: 1. Immediate static blood pool acquisitions demonstrate distribution of the radiopharmaceutical in the visualized right-left thyroid colloid and a focus of uptake caudal to the inferior pole of the right lobe of thyroid parenchyma. 2. Delayed planar images depict incomplete washout from the presumed right-left thyroid parenchyma and persistent uptake noted caudal to the right thyroid bed. Emission computed tomographic reconstructions of the anterior neck reveal confirmation of the planar projection findings. NM/Parathyroid SPECT w/ CONCUR CT IMPRESSION: 1. The subtle increase in radiopharmaceutical concentration noted caudal to the inferior pole of the right thyroid bed likely represents a low-grade parathyroid adenoma in the appropriate clinical context. Electronically Signed: Sagar Dickerson, at 21:19 EST ,
== END | disposition home or self-care (01) ==
PROVIDERS: PCP Physician Assistant; Referring Provider Surgery; Visit Provider Surgery
DX: E21.3 Hyperparathyroidism, unspecified (principal); E04.2 Nontoxic multinodular goiter
CPT/HCPCS: 78072; A9500

== ENCOUNTER → 2022-07-17 | Outpatient (CLI) | payer SELFPAY ==
--- NOTE | 2022-07-17 09:10 | BD_ITS ---
STUDY: DUAL ENERGY X-RAY ABSORPTIOMETRY / DXA REASON FOR EXAM: Female, 42 years old. HYPERPARATHYROIDISM TECHNIQUE: Bone Mineral Density (BMD) measurements of lumbar spine and bilateral hips were obtained. COMPARISON: None. FINDINGS: Lumbar Spine (L1-L4): g/cm2 (1.140) / T-score (0.8) / Z-score (1.2) Findings are suggestive of normal bone density with a low fracture risk. Left Femur Total: g/cm2 (0.958) / T-score (0.1) / Z-score (0.4) Left Femoral Neck: g/cm2 (0.828) / T-score (-0.2) / Z-score (0.2) Right Femur Total: g/cm2 (1.014) / T-score (0.6) / Z-score (0.8) Right Femoral Neck: g/cm2 (0.858) / T-score (0.1) / Z-score (0.4) BD/Dexa Bone Density Study IMPRESSION: The patient is considered normal as outlined below according to World Reji Organization (WHO) criteria with a low fracture risk. Reference Information: The T-score is the number of standard deviations above or below the standard which is normal for young adults at their peak bone mineral density. The World Health Organization (WHO) interprets the T-scores as follows: Above -1 Normal bone density Between -1 and -2.5 Osteopenia Equal to / or below -2.5 Osteoporosis As a practical clinical guideline, osteopenia may be graded as follows: Mild -1 through -1.5 Moderate -1.6 through -2.0 Severe -2.1 through -2.4 The Z-score is the number of standard deviations above or below age-matched controls. A Z-score of less than -1.5 would be considered abnormal. References: 1. NIH Osteoporosis and Related Bone Diseases www osteo.org 2. International Society for Clinical Densitometry www iscd.org 3. National Osteoporosis Foundation www nof.org Electronically Signed: Marko Seymour MD at 8:07 EST ,
== END | disposition home or self-care (01) ==
LOC: OPBD 09:04
PROVIDERS: PCP Physician Assistant; Referring Provider Surgery; Visit Provider Surgery
DX: E21.3 Hyperparathyroidism, unspecified (principal)
CPT/HCPCS: 77080

== ENCOUNTER → 2022-07-23 | Outpatient (CLI) | payer SELFPAY ==
[2022-07-23 11:54] LABS: Absolute Lymphocyte Count 1.72 X10^3/uL (0.83-4.51); Absolute Neutrophil Count 3.3 X10^3/uL (2.0-7.7); Basophil# 0.08 X10^3/uL; Basophil% 1.3 % (0-1); Eosinophil# 0.72 X10^3/uL; Eosinophils% 11.5 % (0-5); Hematocrit 44.8 % (37-47); Hemoglobin 14.4 g/dL (12.0-15.0); Lymphocyte # 1.72 X10^3/ul (0.83-4.51); Lymphocyte % 27.5 % (19-41); Mean Corp Hgb Conc 32.1 g/dL (32-36); Mean Corpuscular Hgb 29.7 pg (27.0-32.0); Mean Corpuscular Volume 92.4 fL (81-99); Mean Platelet Vol. 9.7 fl (6.2-12.0); Monocyte# 0.38 X10^3/uL; Monocyte% 6.1 % (0-10); NRBC Flagged by Analyzer 0 % (0-5); Neutrophil # 3.34 X10^3/uL (2.7-7.7); Neutrophil % 53.4 % (47-70); Platelet Count 282 K/mm3 (150-450); RBC Distribution Width CV 13.2 % (11.6-14.6); RBC Distribution Width SD 44.7 fl (35.1-43.9); Red Blood Count 4.85 M/mm3 (4.2-5.4); White Blood Count 6.3 K/mm3 (4.4-11.0)
[2022-07-27 00:07] LABS: Aspirgillus flavus Negative (Neg:<1:1); Aspirgillus fumigatus Negative (Neg:<1:1); Aspirgillus niger Negative (Neg:<1:1); Cytoplasmic Ab (C-ANCA) <1:20 titer (Neg:<1:20)
[2022-07-27 21:07] LABS: Alternaria tenuis <0.10 kU/L (Class 0); Ash, White <0.10 kU/L (Class 0); Aspergillus fumigatus <0.10 kU/L (Class 0); Bermuda Grass <0.10 kU/L (Class 0); Birch <0.10 kU/L (Class 0); Black Walnut <0.10 kU/L (Class 0); Cat Hair / Dander,Stand <0.10 kU/L (Class 0); Cedar, Mountain <0.10 kU/L (Class 0); Cladosporium herbarum <0.10 kU/L (Class 0); Cockroach, American <0.10 kU/L (Class 0); Cottonwood <0.10 kU/L (Class 0); D farinae Mite <0.10 kU/L (Class 0); D pteronyssinus <0.10 kU/L (Class 0); Dog Epithelia <0.10 kU/L (Class 0); Elm, American White <0.10 kU/L (Class 0); Immunoglobulin E 41 IU/mL (6-495); Maple/Box Elder <0.10 kU/L (Class 0); Mulberry, White <0.10 kU/L (Class 0); Oak, White <0.10 kU/L (Class 0); Pecan <0.10 kU/L (Class 0); Penicillium Notatum <0.10 kU/L (Class 0); Pigweed, Rough <0.10 kU/L (Class 0); Ragweed, Short/Common <0.10 kU/L (Class 0); Russian Thistle <0.10 kU/L (Class 0); Sheep Sorrel <0.10 kU/L (Class 0); Sycamore, American <0.10 kU/L (Class 0); Timothy Grass <0.10 kU/L (Class 0)
[2022-07-27 21:19] LABS: Mouse Urine <0.10 kU/L (Class 0)
[2022-07-27 21:22] LABS: Immunoglobulin E 42 IU/mL (6-495); Perinuclear Ab (P-ANCA) <1:20 titer (Neg:<1:20)
== END | disposition home or self-care (01) ==
LOC: LAB 11:02
PROVIDERS: PCP Physician Assistant; Referring Provider Internal Medicine Critical Care Medicine; Visit Provider Internal Medicine Critical Care Medicine
DX: R06.02 Shortness of breath (principal)
CPT/HCPCS: 36415; 82785; 85025; 86003; 86256; 86606

== ENCOUNTER 2022-09-20 06:01 | Day surgery (SDC) | payer SELFPAY ==
--- NOTE | 2022-09-20 | PARA_PTH ---
PATIENT: ERYN ARELLANO LOC: [facility] [place] U#:[id number] AGE/SX: 42/F ROOM: RE09/20/[address]: Dr. Aren Nassar MD : 1980 BED: DIS: 09/20/2022 SPEC #: [id number] RECD: 09/20/22 09:37 STATUS: TJ USHA #: [id number] [place]: 09/20/22 00:[address]: Aren Nassar DEPT: SURGICAL PATHOLOGY RECD BY: Rocío Andersen ENTERED: 09/20/22 10:31 SP TYPE: PARATHY OTHR DR: LUCIE Gonzalez Tissues: Parathyroid Procedures: Frozen Section (charge) Surgery Specimen Level IV HEADER OPERATION: Parathyroidectomy PRE-OP DIAGNOSIS: Hyperparathyroidism TISSUE SUBMITTED: Right inferior parathyroid tissue, frozen section FROZEN SECTION DIAGNOSIS Right inferior parathyroid tissue, biopsy: Parathyroid gland (1.6 gm). CESAR:neli 09/20/2022 MICROSCOPIC DIAGNOSIS Right inferior parathyroid tissue, parathyroidectomy: Hyperplastic parathyroid tissue (1.6 gm). See comment. CESAR:neli 09/21/2022 COMMENT Correlation with clinical, radiologic findings and appropriate follow up are necessary. Case has been reviewed in consultation with Dr. Arzate who concurs with the above diagnosis. IDC:AM MICROSCOPIC DESCRIPTION Slides are reviewed. GROSS DESCRIPTION Received fresh for frozen section diagnosis labeled with the patient's name is a specimen designated right inferior parathyroid tissue. The specimen consists of an ovoid piece of pink, congested nodule measuring 2.0 x 1.5 x 1.5 cm and weighing 1.6 gm. The specimen is serially sectioned. The entire specimen is submitted in two cassettes as follows: 1 ? frozen section, 2 ? rest of the specimen. / CESAR:neli 09/20/2022 TC:5 CPT: 93646, 15009
[2022-09-20] MEDS: Lactated Ringers 1,000 ML 15 ML IV ×2 (06:45→10:57)
[2022-09-20 06:46] VITALS: BP 154/99; PULSE 86; RESP 17; TEMP 36.7; O2SAT 98; BMI 38.0
[2022-09-20 06:51] LABS: Internal QC Validated? YES +Cl - CLEAR BKGD; Pregnancy, Urine Negative Negative
[2022-09-20 07:01] LABS: Anion Gap 4 (5-15); BUN 15 mg/dL (7-18); BUN/Creat Ratio 12.2 RATIO (10-20); Calcium,Total 11.3 mg/dL (8.5-10.1); Chloride 106 mmol/L (98-107); Creatinine, Serum 1.23 mg/dL (0.55-1.02); EST Glomerular Filtration Rate 51 mL/min (>60); Est Glom Filt Rate - Afr Amer 61 mL/min (>60); Estimated Creatinine Clearance 51.45 ml/min; Glucose 97 mg/dL (74-106); Potassium 3.5 mmol/L (3.5-5.1); Sodium Level 138 mmol/L (136-145)
[2022-09-20 07:02] LABS: PTHIN 232.8 pg/mL (18.4-80.1)
--- NOTE | 2022-09-20 07:31 | PCM.HP.BLA ---
History and Physical Date of Admission: 09/20/22 Date of Service:? 09/06/22 MR#: [id number] Acct: [id number] Name:ERYN DANIELS Rep #: [id number] : 1980 ? ? Provider: Dr. Aren Nassar MD Age/Sex:? 42/F ? ? Location: [facility] Status: Signed Intake Vital Signs ? 08/30/2312:29 09/06/2308:17 Height 5 ft 3 in 5 ft 4 in Weight: ? 215 lb BMI ? 36.8 BP ? 142/85 H Blood Pressure Location ? Rt brachial Position ? Sitting Respiration ? 18 Pulse ? 84 Pulse Source ? Monitor Temp ? 97.5 F L Temp Source ? Temporal Pulse Oximetry (%) ? 100 Oxygen Delivery Method ? room air Intake Visit Reasons:?Update H&P Chief Complaint: Update History and physical for parathyroid surgery Performance Reporter Required: No Is patient in pain?: No Allergies No Known Allergies Allergy (Verified 09/06/22 14:56) Medications inhalational spacing device (Space Chamber) #1 ea 07/11/22 [History Confirmed 09/06/22] montelukast 10 mg tablet (Singulair) 10 mg PO QPM #30 tabs 07/16/22 [Rx Confirmed 09/06/22] budesonide-formoterol HFA 160 mcg-4.5 mcg/actuation aerosol inhaler (Symbicort) 2 puff inhalation BID #1 ea 07/25/22 [Rx Confirmed 09/06/22] omeprazole 20 mg capsule,delayed release 20 mg PO DAILY 08/09/22 [History Confirmed 09/06/22] tiotropium bromide 1.25 mcg/actuation mist for inhalation (Spiriva Respimat) 2 puff inhalation DAILY #4 grams 08/29/22 [Rx Confirmed 09/06/22] albuterol 90 mcg/actuation aerosol inhaler 90 mcg inhalation PRN PRN SOB 09/06/22 [History Confirmed 09/06/22] prednisone 20 mg tablet 20 mg PO BID BREATHING 09/06/22 [History Confirmed 09/06/22] PFSH Medical History?(Updated 09/06/22 @ 17:[address] Aren Nassar MD) Asthma Chronic cough Fatty liver Gastric reflux History of echocardiogram History of edema History of steroid therapy History of stress test Hoarseness Hypertension Non-smoker Restless legs Shortness of breath on exertion Thyroid disorder Wears contact lenses Surgical History? History of delivery Family History? Father CancerMother Diabetes Hypertension Social History? Smoking Status:? Never smoker alcohol intake:? never substance use type:? does not use caffeine:? Yes what type of physical activity do you participate in:? walking seatbelt use:? always do you feel safe at home:? Yes additional social history:? 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 Patient's last visit was 07/11/2022.? Patient presents today by herself.? She is pleased to relate that she has not experienced any respiratory distress since July.? Her last use of prednisone was August 11.? She also notes that her reflux is improved versus resolved as the omeprazole completely takes care of it.? She notes that additional follow with endocrinology has continued to confirm persistent hypercalcemia, but reports that her latest calcium was in the 11's (down from 12).? She confirms that she is not taking anything additionally to lower this level. Below is recapitulated from patient's prior visit for ease of review: Initial consultation visit was 06/06/2022.? Patient returns for update H&P and review of interval work-up.? She presents today with her .? Her most pressing health issue that has arisen since our last visit is related to her pulmonary status.? She states that she has noticed a progression from short episodes of respiratory distress to nearly continuous.? She reports that she just completed a steroid wean on 07/08/2022 and over the last 24 hours has noticed a significant increase in her shortness of breath.? She has required use of her rescue inhaler both last evening and this morning already.? She wishes to know whether high calcium can be linked to these respiratory problems.? She reports reading online that acid reflux could be connected to her bronchospasm.? She also confirms that she has been placed on omeprazole for acid reflux.? She notes that when she was off this medication 2 weeks ago she experienced nighttime awakening and a burning sensation going up to her nose. Beyond this General health update, Mrs. Lee reports that she met with Dr. Jimenez of endocrinology in [place].? Upon reviewing the provided records, endocrinology recommended she proceed with surgery as soon as possible.? Mrs. Lee also reports that she had calcium labs updated last week and her calcium level was higher than it had been in May. To clarify an item in her HPI from her consultation visit, patient denies any significant radiation exposure. Below is recapitulated from patient's consultation visit for ease of review: HPI: Patient is a 42-year-old female who presents for bilateral thyroid nodules.? They are referred for surgical consultation from LUCIE Gonzalez.? This was discovered incidentally during a work-up for some shortness of breath.? Patient relates that she has had approximately 30 to 40 minutes of shortness of breath that develops acutely 5 minutes after exertional activity.? This is the first time in her life that she is ever experienced such a phenomena.? She denies any recent illness and states, specifically, that her last COVID infection was in June.? She also reports that investigative stress test and EKG were within normal limits.. They do experience difficulty with swallowing and reports that it feels like things get stuck?she cites meat as an example.? She also confesses to a history of reflux which can occur with a daily frequency.? She treats this symptomatically with Tums and tries to avoid food triggers.? She is still consuming caffeine on a regular basis.? They do complain of a new cough which is generally dry in character.? They also do appreciate voice changes but states that hoarseness has been a problem for her for years.? They have a history of snoring according to their spouse Additionally, their weight has been increased and they report a total weight gain of approximately 20 pounds despite stable caloric intake and activity.? There also is a history of fatigue which patient states dates back to around 2014.? She reports that she wakes up not feeling refreshed and has a difficult time staying asleep.? More recently they have a history of cold intolerance and expresses it is likely been present for the last couple of months.? ? Other symptoms include: Occasional palpitations, stable anxiety, swelling in lower extremities, dry skin, and some hair loss that has been recently progressed.? They do have a family history of thyroid disorders in their mother but they were unable to detail this report.? There [is/is no] history of prior radiation exposure. Previous work-up has included thyroid ultrasound.? Per radiology this showed a right thyroid lobe measuring 4.9 x 1.6 x 1.4 cm.? Within this lobe a reported 0.7 x 0.8 x 0.5 cm hypoechoic mass in the midportion of the lobe.? Additionally they identify a exophytic nodule measuring 2.3 x 1.5 x 0.9 cm that is hypoechoic and located in the inferior aspect of the lobe.? The left lobe measured 4.2 x 1.2 x 1.3 cm.? Within this lobe there is a well-circumscribed, inhomogenous nodule that was mixed cystic and solid in composition and measures 1.3 x 1.1 x 0.9 cm.? An FNA has been recommended but has not been performed right-sided thyroid nodule.? Other tests include: TSH is 2.7 (04/23/2022), T4 0.9 04/22/2022). Patient is a also noted to carry a diagnosis of hyperparathyroidism which she, again, reports was an incidental finding during her work-up for her recent complaints of shortness of breath.? She states that she is pending a appointment with endocrinology, but that this is not due until June.? Patient has no history of DEXA imaging. Patient has no history of pathologic fractures. ? Patient has no history of kidney stones.? Patient does have a history of frequent dental caries or chipped teeth?she reports she has broken off 6 teeth just eating since 2018.? Patient has no history of brittle fingernails.? Patient has a history of GERD (detailed above).? Patient has no history of hypertension.? Additional symptoms include: Difficulty concentrating, short-term memory lapses, and constipation. Patient [does/does not] have a diet high in dairy. Patient's current labs are calcium: 11.5 mg/dL (04/25/2022), Vitamin D: 33 ng/mL (04 25), Ionized calcium: [Value]mg/dL [date], PTH: 96 pg/mL (04/25/2022), Phosphorus: [Value] [date] Imaging has not been done for this issue specifically, but thyroid ultrasound was completed on 05/08/2022 and is detailed above. Patient has not had DEXA imaging scratch. Patient has not had renal imaging. ROS General General: Yes weight change and fatigue; No appetite, colon cancer, breast cancer or weakness HEENT HEENT: Yes difficulty swallowing; No eye injury, eye surgery, swollen glands or hoarseness Endo Endocrine: No thyroid disease, diabetes mellitus, thyroid cancer, Hair loss, heat intolerance or cold intolerance Skin Skin: Yes rash; No changing moles Cardio Cardiovascular: No murmur, pacemaker, heart disease, atrial fibrillation, high blood pressure, heart attack, heart stent, palpitations, shortness of breat with exertion or chest pain Psych Psychiatric: No depression, anxiety or hearing voices Resp Respiratory: Yes shortness of breath, No sleep apnea, No cough, No COPD, No asthma, No emphysema and No wheezing Gastro Gastrointestinal: No abdominal pain, No nausea or vomiting, No diarrhea, Yes constipation, No blood in stool, Yes acid reflux, Yes hemorrhoids, No ulcers, No gallbladder problem and No black,tarry stools Young Hematologic: No blood thinners, No blood disorders, No bleeding, No anemia and No blood clots Neuro Neurologic: No system reviewed and no additional complaints, except as documented, No as per HPI, No abnormal gait, No abnormal hearing, No abnormal movements, No abnormal speech, No behavioral changes, No burning sensations, No confusion, No convulsions, No disequilibrium, No dizziness, No localized weakness, No frequent falls, No headache(s), No lack of coordination, No loss of vision, No memory loss, No numbness, No other visual disturbances, No radicular pain, No restless legs, No sensory deficit, No syncope, No tingling, No tremor(s), No weakness and No other Exam Const General: cooperative, comfortable and no acute distress Orientation: alert, awake and oriented x3 Neck Lymphatic: no lymphadenopathy noted Other: Soft and supple, I do not palpate any nodularity.? Nontender.? Patient does have a ideal crease over the area of her cricoid cartilage for incision planning. Resp Effort & Inspection: normal respiratory effort Assessment and Plan Assessment and Plan (1) Hyperparathyroidism: ?Status:?Acute ?Comment: Patient also with a recent diagnosis of hyperparathyroidism.? In review of patient's laboratories this appears to be a fairly straightforward case of primary hyperparathyroidism.? Patient meets criteria for further investigation and possible surgical candidacy given her significant calcium elevation and young age.? Patient underwent FNA with PTH assay of a hypoechoic lesion just inferior to the inferior pole of the right thyroid lobe and the PTH resulted in greater than 9600.? However, slightly confounding this picture, pathology was not able to definitively say whether the cytology was of parathyroid origin so patient was asked to complete a sestamibi scan.? This was positive and localized to the right inferior position as well.? Given this imaging/laboratory concordance I believe the localization is complete for Mrs. Lee's case.? DEXA imaging was performed and patient's skeletal density was found to be within normal limits.? This result was shared with her today.? I am pleased to hear that her pulmonary status is greatly improved after her time with Dr. Emanuel of pulmonology.? She has not required any steroid therapy for 1 month now.? However, as we anticipate an upcoming operation, Dr. Emanuel has ordered a steroid burst to try to mitigate her risk perioperatively. During today's visit I used hand drawings to accompany a discussion about my plans for Mrs. Lee's operation and specifically detailed a minimally invasive parathyroidectomy with intraoperative nerve and PTH monitoring.? I did share with Mrs. Lee that there may be because to proceed with a contralateral dissection if our PTH results do not downtrend in response to initial parathyroidectomy.? I also shared with her how this could impact her ultimate disposition.? Lastly, I shared with her that her disposition would be also dependent on her respiratory status postoperatively.? She expresses understanding of all this information and denies any further questions.? We have an operative date currently set for 09/20/2022.? Patient to complete her steroid burst in the week preceding. ?Plan: ? Plan for minimally invasive parathyroidectomy with exploration of the right inferior parathyroid using intraoperative nerve and PTH monitoring on 09/20/2022.? Outpatient disposition planned, but subject intraoperative findings as well as patient's postoperative pulmonary status. I have examined the patient and the H&P has been reviewed. There are no clinical changes since date of exam. Patient confirms that her respiratory status has remained stable. She has completed a steroid burst in anticipation of today's procedure per pulmonary medicine. Post procedure expectations were reviewed. Patient and her have no further questions. Therefore we will proceed to the operating room for parathyroidectomy with intraoperative PTH and nerve monitoring.
[2022-09-20 09:04] LABS: PTHIN 530.4 pg/mL (18.4-80.1)
[2022-09-20 10:08] LABS: PTHIN 50.1 pg/mL (18.4-80.1)
[2022-09-20 10:09] LABS: PTHIN 99.9 pg/mL (18.4-80.1)
[2022-09-20 10:15] LABS: PTHIN 41.6 pg/mL (18.4-80.1)
[2022-09-20] MEDS: Bupivacaine 0.25% 30 ML Vial (10:22)
--- NOTE | 2022-09-20 10:33 | PCM.OPRPT ---
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 Markedly enlarged right inferior parathyroid lesion that appeared to contain liquefied hematoma beneath the capsule for an overall dimension length of around 3-1/2 to 4 cm. Frozen section confirmed this to be parathyroid tissue and the weight of this lesion was 1600 mg Surgeon: Aren Nassar divinity teacher: Kavitha Pacheco Type of Anesthesia: General/Supplemental Anesthesiologist: Nando Urias Specimen's removed: Right inferior parathyroid Estimated Blood Loss (mL): 15 Description of Procedure: After appropriate identification in the preoperative holding area the patient was brought to the operating room where she was positioned supine on the operating room table. There she was induced with general endotracheal anesthetic. Of note, a preoperative PTH had been obtained and was reported as 232.8. Patient was then intubated using a Nims tube and glide a scope to ensure coaptation between the vocal cords and the Nims tube electrodes. A resistance check confirmed appropriate function of the tube after the electrodes were properly connected to the monitoring box. Patient was then positioned in cervical extension, but adequately supporting the occiput. She was prepped and draped in the usual sterile fashion and a formal timeout followed to confirm patient and the procedure to be performed. A local block was produced with infiltration of local anesthetic and a 3cm transverse incision was made. This was deepened with the use of electrocautery through the platysma and partial subplatysmal flaps were raised superiorly and inferiorly. Ultimately the strap muscles were exposed and were divided along their raphe with electrocautery. The strap muscles were from 1 another as I proceeded with dissection laterally towards the patient's right internal jugular vein. Upon visualization of this vessel, I obtained a baseline central venous specimen for PTH assay and this was passed off the field for laboratory processing. I then used blunt dissection to free the sternothyroid muscle from the thyroid capsule of the right thyroid lobe deeply. Our PTH level came back a short while later at 530.4. Very shortly after sweeping the last of the strap muscles off the anterior capsule of the thyroid, I was able to visualize a enlarged oval structure off the inferior pole of the thyroid gland. This appeared deeply pigmented, but was in the appropriate location for a parathyroid adenoma. Careful blunt dissection was employed to free the structure from its surrounding soft tissue attachments until it was circumferentially freed so that it remained suspended by only its vascular pole. Unfortunately during this careful blunt dissection, I did disrupt the capsule and released what appeared to be liquefied hematoma into the field. Fearing contamination from our parathyroid, I requested irrigation with sterile water. Prior to dividing this vascular pedicle I tested for the recurrent laryngeal nerve and found a positive signal far superior to where we are presently working. Therefore, I felt confident to take the pedicle which clearly terminated and the gland right adjacent to the capsule with the use of the LigaSure. This specimen was passed off the field for frozen section confirmation. (Later, pathology telephoned the room to notify us that indeed this represented a large parathyroid gland weighing 1600 mg). As we awaited this result, I irrigated the surgical cavity with sterile water examined for hemostasis. Right internal jugular ex vivo blood draws were made with a 22-gauge needle and syringe at 5, 10, and 15 minutes (in actuality 8, 14, and 20 minutes) and pressure was applied to ensure hemostasis at the site of jugular access. I then made a brief attempt at examining for the right superior parathyroid gland, but our submitted lab specimens were reported about the same time and returned 99.9, 50.1, and 41.6, respectively. Satisfied with this result, the case was terminated and hemostasis was once again confirmed in the surgical bed. Then I performed closure of the neck in layers. The strap muscles were run with a 3-0 Vicryl suture to reapproximate the raphe, but a gap was left in the inferior most portion of the strap muscles. Then the platysmal layer was reapproximated with interrupted 3-0 Vicryl. Additional local anesthetic was instilled. The skin was closed using a running 4-0 Monocryl in a subcuticular fashion. Steri-Strips and Telfa OpSite was applied as a dressing. Patient was then awoken from general anesthetic and taken to PACU for ongoing recovery. Complications None Admit VTE Documentation VTE Mechan Device Prophylaxis: SCD's
--- NOTE | 2022-09-20 10:37 | DCINST_ITS ---
Discharge Instructions Diet Discharge Diet: No restrictions (However recommend a liquid to soft diet initially postoperatively) Activity Discharge Activity: May Not Drive (While it remains difficult to check blind spots quickly) May shower in (days): 2 Ice area for (Minutes): 20 Lifting Restrictions: No lifting greater than 15 pounds for 2 weeks after surgery Dressing / Incision Call your doctor if your incision/area has: Continuous Slow Oozing, Sudden Increased Bleeding, Increased Pain/ Swelling, Increased Redness and Swelling at the incision site Call your doctor if you observe: Numbness or Tingling Remove Dressing in: 2 days (Please leave Steri-Strips intact until they fall off spontaneously or are taken off at your follow-up visit) Cleanse incision/area with: Soap & Water Follow Up Care Please Follow Up With: Aren Nassar MD When: 7 days postop Test Results: Test results from this visit will be discussed in further detail at your follow- up appointment, if applicable. Discharge Plan Admission Primary Reason for Your Visit: Parathyroidectomy Attending Provider: Aren Nassar Primary Care Provider: Aviva Elizabeth Instructions Additional Instructions / Restrictions: Please take 1 regular strength Tums is feeling numbness or tingling of the fingertips or mouth and notify your doctors office immediately Discharge Orders/Prescriptions Prescriptions: Continued (DME) Space Chamber Spacer See Rx Instructions .ROUTE .MEDSUPPLY Qty: 1 Label Comments: USE DIRECTED Rx Instructions: As directed No Action montelukast [Singulair] 10 mg tablet 10 mg PO QPM Qty: 30 6RF omeprazole 20 mg capsule,delayed release(DR/EC) 20 mg PO DAILY albuterol 90 mcg/actuation Aerosol 90 mcg INHALATION PRN PRN (Reason: SOB) prednisone 20 mg tablet 20 mg PO BID Rx Instructions: administer with food or milk budesonide-formoterol [Symbicort] 160-4.5 mcg/actuation HFA aerosol inhaler 2 puff inhalation BID Qty: 1 3RF Rx Instructions: administer with spacer, rinse mouth after each use Spiriva Respimat 1.25 mcg/actuation mist 2 puff inhalation DAILY Qty: 4 6RF Referrals / Follow Up: Aviva Elizabeth PA [Primary Care Provider] - Disposition Disposition (needs filled in before D/C Order can be placed): Home, Self Care
[2022-09-20 10:45] VITALS: BP 154/99; BP 163/89; PULSE 115; RESP 16; TEMP 36.5; O2SAT 98
[2022-09-20 11:00] VITALS: BP 154/99; BP 155/91; PULSE 99; RESP 16; O2SAT 96
[2022-09-20 11:15] VITALS: BP 152/90; BP 154/99; PULSE 94; RESP 18; O2SAT 95
[2022-09-20 11:24] VITALS: BP 153/95; BP 154/99; PULSE 93; RESP 16; TEMP 36.7; O2SAT 97
[2022-09-20 12:40] LABS: PTHIN 9.9 pg/mL (18.4-80.1)
[2022-09-20] MEDS: Acetaminophen 500 MG Tablet 1000 MG PO (12:40)
[2022-09-20] MEDS: Calcium Carb/Vitamin D 1 TABLET Tablet PO (13:57)
[2022-09-20 14:14] VITALS: BP 154/99; BP 159/94; PULSE 96; RESP 18; TEMP 36.8; O2SAT 98
== END 2022-09-20 14:50 | disposition home or self-care (01) ==
LOC: SDC 06:10 → AC 06:10
PROVIDERS: Anesthesiology; PCP Physician Assistant; Referring Provider Surgery; Visit Provider Surgery
PROC: (CPT 60500; principal; 2022-09-20 07:15)
DX: D35.1 Benign neoplasm of parathyroid gland (principal); E21.0 Primary hyperparathyroidism; K21.9 Gastro-esophageal reflux disease without esophagitis; K76.0 Fatty (change of) liver, not elsewhere classified; J45.909 Unspecified asthma, uncomplicated; Z79.899 Other long term (current) drug therapy
CPT/HCPCS: 60500; 00320; 80048; 81025; 83970; 88305; 88331; A4648; J7120; A4216; J2405

== ENCOUNTER → 2022-09-21 | Outpatient (CLI) | payer SELFPAY ==
[2022-09-21 12:54] LABS: PTHIN 10.4 pg/mL (18.4-80.1)
== END | disposition home or self-care (01) ==
PROVIDERS: PCP Physician Assistant; Referring Provider Surgery; Visit Provider Surgery
DX: O99.280 Endocrine, nutritional and metabolic diseases complicating pregnancy, unspecified trimester (principal); E21.3 Hyperparathyroidism, unspecified; E03.9 Hypothyroidism, unspecified; E04.2 Nontoxic multinodular goiter; Z3A.00 Weeks of gestation of pregnancy not specified
CPT/HCPCS: 36415; 82310; 83970

== ENCOUNTER → 2022-10-03 | Outpatient (CLI) | payer SELFPAY ==
[2022-10-03 11:13] LABS: PTHIN 23.6 pg/mL (18.4-80.1)
[2022-10-03 11:20] LABS: Anion Gap 2 (5-15); BUN 11 mg/dL (7-18); BUN/Creat Ratio 8.9 RATIO (10-20); Chloride 105 mmol/L (98-107); Creatinine, Serum 1.24 mg/dL (0.55-1.02); EST Glomerular Filtration Rate 50 mL/min (>60); Est Glom Filt Rate - Afr Amer 61 mL/min (>60); Glucose 99 mg/dL (74-106); Potassium 3.5 mmol/L (3.5-5.1); Sodium Level 134 mmol/L (136-145)
== END | disposition home or self-care (01) ==
LOC: LAB 09:49
PROVIDERS: PCP Physician Assistant; Referring Provider Nurse Practitioner Adult Health; Visit Provider Surgery
DX: E21.0 Primary hyperparathyroidism (principal)
CPT/HCPCS: 36415; 80048; 82330; 83970

== ENCOUNTER → 2022-10-26 | Outpatient (CLI) | payer SELFPAY ==
[2022-10-26 11:28] LABS: PTHIN 11.6 pg/mL (18.4-80.1)
[2022-10-26 11:34] LABS: Calcium,Total 10.4 mg/dL (8.5-10.1)
== END | disposition home or self-care (01) ==
PROVIDERS: PCP Physician Assistant; Referring Provider Surgery; Visit Provider Surgery
DX: E89.2 Postprocedural hypoparathyroidism (principal)
CPT/HCPCS: 36415; 82310; 83970

== ENCOUNTER → 2023-01-08 | Outpatient (CLI) | payer SELFPAY ==
[2023-01-08 09:06] LABS: PTHIN 32.4 pg/mL (18.4-80.1)
[2023-01-08 09:07] LABS: Ionized Calcium 5.13 mg/dL (4.36-5.20)
[2023-01-08 09:21] LABS: Anion Gap 3 (5-15); BUN 9 mg/dL (7-18); Calcium,Total 9.4 mg/dL (8.5-10.1); Chloride 107 mmol/L (98-107); Creatinine, Serum 1.28 mg/dL (0.55-1.02); EST Glomerular Filtration Rate 48 mL/min (>60); Est Glom Filt Rate - Afr Amer 59 mL/min (>60); Glucose 99 mg/dL (74-106); Potassium 3.6 mmol/L (3.5-5.1); Sodium Level 138 mmol/L (136-145); Thyroid Stim Hormone (TSH) 4.57 uIU/mL (0.358-3.74)
== END | disposition home or self-care (01) ==
PROVIDERS: PCP Physician Assistant; Visit Provider Surgery
DX: E21.0 Primary hyperparathyroidism (principal); E04.2 Nontoxic multinodular goiter
CPT/HCPCS: 36415; 80048; 82330; 83970; 84443

== ENCOUNTER → 2023-06-20 | Outpatient (CLI) | payer SELFPAY ==
--- OUTSIDE RECORDS SUMMARY | 2023-06-20 12:34 | XMS RPT_ITS | CCD ---
Author Name Unknown Address [address] [place] [id number] Organization [facility] Care Team Providers Care Vitreo Retinal Surgeon Name Role Phone HILLARYMANPREET JOSE Attending Unavailable Unavailable Primary Care Provider Unavailabl e DARNELL VASQUEZ Admitting Unavailable DARNELL VASQUEZ Attending Unavailable DARRELL PALMER Referring Unavailable DARRELL PALMER Consulting Unavailable DARNELL VASQUEZ Primary Care Unavailable PROVIDER, UNKNOWN Consulting Unavailable PROVIDER, UNKNOWN Consulting Unavailable PROVIDER, UNKNOWN Consulting Unavailable DARNELL VASQUEZ Consulting Unavailable FRANTZ KEY PA-C Attending Unavailab FRANTZ Knox PA-C Primary Care Unavailab FRANTZ Knox PA-C Admitting Unavailab le PROVIDER, UNKNOWN Consulting Unavailable DARNELL VASQUEZ Admitting Unavailable DARNELL VASQUEZ Attending Unavailable DARNELL VASQUEZ Consulting Unavailable DARNELL VASQUEZ Primary Care Unavailable PROVIDER, UNKNOWN Consulting Unavailable MARY PARKINSON Attending Unavailable MARY PARKINSON Attending Unavailable Medications Current Medications Medication Drug Class(es) Dates Sig (Normalized) Sig (Original) famotidine 20 mg oral tablet (1 source) Histamine-2 Receptor Antagonist Start: 06-18-2022 End: 06-28-2022 take 1 tablet by mouth twice daily famotidine (PEPCID) 20 mg tablet Take 1 tablet by mouth twice daily for 10 days. 20 tablet 0 06/18/2022 06/28/2022 Active Completed/Discontinued Medications Medication Drug Class(es) Dates Sig (Normalized) Sig (Original) [id number] 200 actuat albuterol 0.09 mg/actuat metered dose inhaler (4 sources) beta2-Adrenergic Agonist Start: 06-18-2022 take 2 puff(s) by inhalation every six hours as needed for wheezing albuterol HFA (PROVENTIL HFA, VENTOLIN HFA) 90 mcg/actuation inhaler Inhale 2 Puffs as instructed every 6 hours as needed for wheezing/shortnes s of breath. 1 Each 0 06/18/2022 Active Problems Active Problems Problem Classification Problem Date Documented Da te Episodic/Chronic Asthma (2 sources) Moderate persistent asthma with (acute) exacerbation; Translations: [Exacerbation of asthma] Onset: 06-18-2022 Chronic Chronic obstructive pulmonary disease and bronchiectasis (2 sources) Bronchitis, not specified as acute or chronic; Translations: [Bronchitis] Onset: 06-18-2022 Episodic Esophageal disorders (2 sources) Gastro-esophageal reflux disease without esophagitis; Translations: [Gastroesophageal reflux disease without esophagitis] Onset: 06-18-2022 Chronic Past or Other Problems Problem Classification Problem Date Documented Da te Episodic/Chronic Unclassified (1 source) E21.0 E83.52 E04.2 Onset: 08-23-2022 Results Test Name Value Interpretation Reference Range Facil ity Vital Signs Date Time Vital Sign Value Performing Clinician Faci lity 06-18-2022 13:27-0500 Body temperature 97.11 [degF] Ojse Dyko PA-C Work Phone: [facility] 06-18-2022 13:27-0500 Body weight 97.52 kg Jose Dyko PA-C Work Phone: [facility] 06-18-2022 13:27-0500 Diastolic blood pressure 92 mm[Hg] Jose Dyko PA-C Work Phone: [facility] 06-18-2022 13:27-0500 Heart rate 94 /min Jose Dyko PA-C Work Phone: [facility] 06-18-2022 13:27-0500 Respiratory rate 22 /min Jose Dyko PA-C Work Phone: [facility] 06-18-2022 13:27-0500 SaO2% (BldA) [Mass fraction] 96 % Jose Dyko PA-C Work Phone: [facility] 06-18-2022 13:27-0500 Systolic blood pressure 153 mm[Hg] Jose Dyko PA-C Work Phone: [facility] Encounters Encounter Date Encounter Type Care Provider Facility Start: 09-26-2022 ambulatory MARY FORBESERTY Facil ity:[facility] Start: 09-26-2022 End: 09-26-2022 Subsequent hospital visit by physician Provider [facility] Procedures Date Procedure Procedure Detail Performing Clinician Start: 09-26-2022 BASIC METABOLIC PNL Nik hiwot Magdalene JonesIggy SLEEVE SEPARATOR Work Phone: Start: 09-26-2022 CALCIUM IONIZED BLOOD H gurinder Del Castillo Iggy SLEEVE SEPARATOR Work Phone: Start: 09-26-2022 PTH INTACT BLD Mary Jonesugherty SLEEVE SEPARATOR Work Phone: Plan of Treatment Date Care Activity Detail Author Start: 02-22-2023 Influenza vaccination Influenza Vacc ine (#1) [facility] Start: 06-24-2022 Depression Assessment Depression Ass essment [facility] Start: 02-22-2022 Influenza vaccination INFLUENZA (#1) [facility] Start: 06-24-2021 DEPRESSION ASSESSMENT DEPRESSION ASS ESSMENT [facility] Start: 2020 Mammography [facility] Start: 12-31-2009 HPV TESTING HPV TESTING [facility] Start: 12-31-2000 PAP TESTING PAP TESTING [facility] Start: 12-31-1998 Urine microalbumin profile [facility] Start: 12-31-1997 HEPATITIS C SCREENING HEPATITIS C SC REENING [facility] Start: 12-31-1997 HIV SCREENING HIV SCREENING [facility] Start: 1980 COVID-19 VACCINE (#1) COVID-19 VACCI NE (#1) [facility] Start: 1980 HEPATITIS B (1 of 3 - 3-dose series) HEPATITIS B (1 of 3 - 3-dose series) [facility] Start: 1980 Hepatitis B Vaccine (1 of 3 - 3-dose series) Hepatitis B Vaccine (1 of 3 - 3-dose series) [facility] Payers Date Payer Category Payer Unknown [id number] [id number] Self-pay [id number] Self-pay Unknown Unknown [id number] Unknown [id number] Social History Date Type Detail Facility Start: 06-18-2022 Tobacco smoking stat us NHIS Never smoked tobacco [facility] Start: 06-18-2022 Tobacco use and exposure Smoke less tobacco non-user [facility] Start: 06-18-2022 Alcohol intake Ex-drinker (finding) [facility] Start: 1980 Sex Assigned At Not on file C [facility] Start: 06-18-2022 History of Social function [facility] Start: 06-18-2022 Tobacco use panel [facility] Adult Depression Scr eening Assessment 0 [facility] Progress note 06-18-2022 Note Date & Type Note Facility 06-18-2022 Note HNO ID: [id number] Author: Jose Minaya PA-C Service: ? Author Type: Physician Film Processing Shift Supervisor Type: Progress Notes Filed: 06/18/2022 1:57 PM Note Text: HPI: Magaly Lee is a 42 year old female who presents with Cough (Symptoms started 4 days ago. The patient states that she has been having SOB since March and is following up with testing with PCP. She states that she was sick beginning of May and has been coughing since. ), Chest Congestion, and Wheezing. History reviewed. No pertinent past medical history. There is no problem list on file for this patient. Current Outpatient Medications Medication Sig Dispense Refill albuterol sulfate 90 mcg/actuation breath activated powder inhaler Inhale as instructed. albuterol HFA (PROVENTIL HFA, VENTOLIN HFA) 90 mcg/actuation inhaler Inhale 2 Puffs as instructed every 6 hours as needed for wheezing/shortness of breath. 1 Each 0 azithromycin (ZITHROMAX Z-DEMOND) 250 mg tablet 2 tablets by mouth first day then 1 tablet the next 4 days 6 tablet 0 predniSONE (DELTASONE) 20 mg tablet Take 1 tablet by mouth twice daily. 10 tablet 0 famotidine (PEPCID) 20 mg tablet Take 1 tablet by mouth twice daily for 10 days. 20 tablet 0 lansoprazole (PREVACID) 30 mg capsule Take 1 capsule by mouth once daily for 10 days. 10 capsule 0 No current facility-administered medications for this visit. Social History Tobacco Use Smoking status: Never Smokeless tobacco: Never Vaping Use Vaping Use: Never used Substance Use Topics Alcohol use: Not Currently Drug use: Never Alcohol Use: Not Currently Tobacco Use: Never History reviewed. No pertinent family history. Review of Systems HENT: Positive for congestion. Negative for sore throat. Eyes: Negative. Respiratory: Positive for cough, shortness of breath and wheezing. Cardiovascular: Negative for chest pain. Gastrointestinal: Positive for heartburn. Negative for diarrhea, nausea and vomiting. Genitourinary: Negative. Musculoskeletal: Negative. Skin: Negative. Neurological: Negative. Endo/Heme/Allergies: Negative. Psychiatric/Behavioral: Negative. All other systems reviewed and are negative. BP 153/92 Pulse 94 Temp 97.1 Resp 22 Wt 215 lb (97.5kg) SpO2 96% LMP 06/08/2022 Physical Exam Vitals and nursing note reviewed. Constitutional: General: She is not in acute distress. Appearance: Normal appearance. She is normal weight. She is not ill-appearing or toxic-appearing. HENT: Head: Normocephalic and atraumatic. Right Ear: Tympanic membrane, ear canal and external ear normal. Left Ear: Tympanic membrane, ear canal and external ear normal. Nose: Nose normal. No congestion or rhinorrhea. Mouth/Throat: Mouth: Mucous membranes are moist. Pharynx: Oropharynx is clear. No oropharyngeal exudate or posterior oropharyngeal erythema. Eyes: Extraocular Movements: Extraocular movements intact. Conjunctiva/sclera: Conjunctivae normal. Pupils: Pupils are equal, round, and reactive to light. Cardiovascular: Rate and Rhythm: Normal rate and regular rhythm. Pulses: Normal pulses. Heart sounds: Normal heart sounds. Pulmonary: Effort: Pulmonary effort is normal. Breath sounds: Wheezing present. Abdominal: General: Abdomen is flat. Bowel sounds are normal. Palpations: Abdomen is soft. Musculoskeletal: General: Normal range of motion. Cervical back: Normal range of motion and neck supple. No tenderness. Lymphadenopathy: Cervical: No cervical adenopathy. Skin: General: Skin is warm and dry. Capillary Refill: Capillary refill takes less than 2 seconds. Neurological: General: No focal deficit present. Mental Status: She is alert and oriented to person, place, and time. Psychiatric: Mood and Affect: Mood normal. Behavior: Behavior normal. Clinical Impression ICD-10-CM 1. Bronchitis J40 2. Moderate persistent reactive airway disease with wheezing with acute exacerbation J45.41 3. GERD without esophagitis K21.9 PLAN: Patient has upper airway type wheezing. She has heartburn issues. She does not take anything for that. Said oftentimes it will bother her on a daily basis. She is not any fevers or chills. Over the past couple of days the cough congestion and wheezing has become worse. No other complaints with it. This is something that has been going on now for the past few months. No recent history of COVID. No history of any airway issues or any allergy issues or any GERD issues in the past. Put on Pepcid, Prevacid. Antibiotic coverage, inhaler, short course of steroid. Discharged with pulmonology referral Jose Minaya PA-C This note was generated with voice recognition software and may contain errors, including spelling, grammar, syntax and misrecognition of what was dictated, that are not fully corrected. [facility] History of Present illness Narrative 06-18-2022 Jose Minaya PA-C - 06/18/2022 1:56 PM EST Note Date & Type Note Facility 06-18-2022 History of Presen t illness Narrative HPI: Magaly Lee is a 42 year old female who presents with Cough (Symptoms started 4 days ago. The patient states that she has been having SOB since March and is following up with testing with PCP. She states that she was sick beginning of May and has been coughing since. ), Chest Congestion, and Wheezing. History reviewed. No pertinent past medical history. There is no problem list on file for this patient. Current Outpatient Medications Medication Sig Dispense Refill albuterol sulfate 90 mcg/actuation breath activated powder inhaler Inhale as instructed. albuterol HFA (PROVENTIL HFA, VENTOLIN HFA) 90 mcg/actuation inhaler Inhale 2 Puffs as instructed every 6 hours as needed for wheezing/shortness of breath. 1 Each 0 azithromycin (ZITHROMAX Z-DEMOND) 250 mg tablet 2 tablets by mouth first day then 1 tablet the next 4 days 6 tablet 0 predniSONE (DELTASONE) 20 mg tablet Take 1 tablet by mouth twice daily. 10 tablet 0 famotidine (PEPCID) 20 mg tablet Take 1 tablet by mouth twice daily for 10 days. 20 tablet 0 lansoprazole (PREVACID) 30 mg capsule Take 1 capsule by mouth once daily for 10 days. 10 capsule 0 No current facility-administered medications for this visit. Social History Tobacco Use Smoking status: Never Smokeless tobacco: Never Vaping Use Vaping Use: Never used Substance Use Topics Alcohol use: Not Currently Drug use: Never Alcohol Use: Not Currently Tobacco Use: Never History reviewed. No pertinent family history. Review of Systems HENT: Positive for congestion. Negative for sore throat. Eyes: Negative. Respiratory: Positive for cough, shortness of breath and wheezing. Cardiovascular: Negative for chest pain. Gastrointestinal: Positive for heartburn. Negative for diarrhea, nausea and vomiting. Genitourinary: Negative. Musculoskeletal: Negative. Skin: Negative. Neurological: Negative. Endo/Heme/Allergies: Negative. Psychiatric/Behavioral: Negative. All other systems reviewed and are negative. BP 153/92 Pulse 94 Temp 97.1 Resp 22 Wt 215 lb (97.5kg) SpO2 96% LMP 06/08/2022 Physical Exam Vitals and nursing note reviewed. Constitutional: General: She is not in acute distress. Appearance: Normal appearance. She is normal weight. She is not ill-appearing or toxic-appearing. HENT: Head: Normocephalic and atraumatic. Right Ear: Tympanic membrane, ear canal and external ear normal. Left Ear: Tympanic membrane, ear canal and external ear normal. Nose: Nose normal. No congestion or rhinorrhea. Mouth/Throat: Mouth: Mucous membranes are moist. Pharynx: Oropharynx is clear. No oropharyngeal exudate or posterior oropharyngeal erythema. Eyes: Extraocular Movements: Extraocular movements intact. Conjunctiva/sclera: Conjunctivae normal. Pupils: Pupils are equal, round, and reactive to light. Cardiovascular: Rate and Rhythm: Normal rate and regular rhythm. Pulses: Normal pulses. Heart sounds: Normal heart sounds. Pulmonary: Effort: Pulmonary effort is normal. Breath sounds: Wheezing present. Abdominal: General: Abdomen is flat. Bowel sounds are normal. Palpations: Abdomen is soft. Musculoskeletal: General: Normal range of motion. Cervical back: Normal range of motion and neck supple. No tenderness. Lymphadenopathy: Cervical: No cervical adenopathy. Skin: General: Skin is warm and dry. Capillary Refill: Capillary refill takes less than 2 seconds. Neurological: General: No focal deficit present. Mental Status: She is alert and oriented to person, place, and time. Psychiatric: Mood and Affect: Mood normal. Behavior: Behavior normal. Clinical Impression ICD-10-CM 1. Bronchitis J40 2. Moderate persistent reactive airway disease with wheezing with acute exacerbation J45.41 3. GERD without esophagitis K21.9 PLAN: Patient has upper airway type wheezing. She has heartburn issues. She does not take anything for that. Said oftentimes it will bother her on a daily basis. She is not any fevers or chills. Over the past couple of days the cough congestion and wheezing has become worse. No other complaints with it. This is something that has been going on now for the past few months. No recent history of COVID. No history of any airway issues or any allergy issues or any GERD issues in the past. Put on Pepcid, Prevacid. Antibiotic coverage, inhaler, short course of steroid. Discharged with pulmonology referral Jose Minaya PA-C This note was generated with voice recognition software and may contain errors, including spelling, grammar, syntax and misrecognition of what was dictated, that are not fully corrected. documented in this encounter [facility] Evaluation note Note Date & Type Note Facility documented in this encounter [facility] Summary Purpose Family History No Family History Records FoundNo Family History Records FoundNo Family History Records FoundNo Family History Records Found Advance Directives No Advanced Directives Records FoundNo Advanced Directives Records FoundNo Advanced Directives Records FoundNo Advanced Directives Records Found Additional Source Comments INFORMATION SOURCE (unrecogn ized section and content) DATE CREATED AUTHOR AUTHOR'S ORGANIZ ATION 06/26/2022 [facility] DATE CREATED AUTHOR AUTHOR'S ORGANIZ ATION 07/06/2022 [facility] DATE CREATED AUTHOR AUTHOR'S ORGANIZ ATION 10/01/2022 [facility] Source Comments (unrecognize d section and content) In the event this informatio n is protected by the Federal Confidentiality of Alcohol and Drug Abuse Patient Records regulations: The Federal rules restrict any use of the information to criminally investigate or prosecute any alcohol or drug abuse patient[facility] the event this information is protected by the Federal Confidentiality of Alcohol and Drug Abuse Patient Records regulations: The Federal rules restrict any use of the information to criminally investigate or prosecute any alcohol or drug abuse patient.[facility] Reason for Visit (unrecogniz ed section and content) FOR RECORDS PERTAINING TO PATIENTS WHO ARE OR HAVE BEEN ENROLLED IN A CHEMICAL DEPENDENCY/SUBSTANCEABUSE PROGRAM, SOME INFORMATION MAY BE OMITTED. This clinical summary was aggregated from multiple sources. Caution should be exercised in using it in the provision of clinical care. This summary normalizes information from multiple sources, and as a consequence, information in this document may materially change the coding, format and clinical context of patient data. In addition, data may be omitted in some cases. CLINICAL DECISIONS SHOULD BE BASED ON THE PRIMARY CLINICAL RECORDS. [facility] [facility]. provides no warranty or guarantee of the accuracy or completeness of information in this document.
== END | disposition home or self-care (01) ==
LOC: LABSPEC 12:10
PROVIDERS: PCP Physician Assistant; Referring Provider Nurse Practitioner Acute Care; Visit Provider Nurse Practitioner Acute Care
DX: J45.909 Unspecified asthma, uncomplicated (principal)
CPT/HCPCS: 87070; 87205